=== PATIENT | female | born 1950 | race Caucasian/White ===

== ENCOUNTER 2016-07-30 10:56 | Inpatient (IN) | payer BC, MEDICARE ==
[~2016-07-30] VITALS: Ht 162.6 cm; Wt 106.1 kg
[2016-07-30 14:43] VITALS: BP 146/91
--- NOTE | 2016-07-30 15:09 | Physical Therapy Evaluation ---
PT Evaluation-General Medical Diagnosis Admission Date Jul 30, 2016 at 14:30 Medical Diagnosis: pneumonia Onset Date: Jul 23, 2016 Therapy Diagnosis Therapy Diagnosis: weakness; abn gait Height/Weight Height (Feet): 5 Height (Inches): 4.00 Weight (Pounds): 245 Weight (Ounces): 0.0 Precautions Precautions/Isolations: Standard Precautions Weight Bear Status NWB R UE Referral Physician: Anil Reason for Referral: Evaluation/Treatment Medical History Pertinent Medical History: GERD Additional Medical History morbid obesity, sarcoidosis with steroid dependence, chronic respiratory failure , recurrent pneumonia, depression, chronic back pain. Current History Recent hospital admit with humeral dislocation, clavicle fx; reports of SOA and recurrent pneumonia. Reviewed History: Yes Social History Home: Single Level Current Living Status: Spouse PT Steps Inside Home: 2 Prior/Core FIM Prior Level of Function Functional [place] Measure 0=Not Assessed/NA 4=Minimal Assistance 1=Total Assistance 5=Supervision or Setup 2=Maximal Assistance 6=Modified [place] 3=Moderate Assistance 7=Complete [place] Bed Mobility: 7 (typically sleeps in a recliner) Transfers (B,C,W/C) (FIM): 7 Gait: 7 drives; occas uses a cane in the community; works as a certified medical coder. PT Evaluation-Current Subjective Agrees to PT. Reports she is tired today as she has done more today than in the last few days. Pain Numeric Pain Scale: 0-No Pain Location: No Pain Reported Objective Patient Orientation: Person, Place, Time, Situation Problem Solving: Good Attachments: Oxygen ROM/Strength ROM Lower Extremities WFL Strenght Lower Extremities grossly 4-/5 throughout Integumentary/Posture Integumentary intact Bowel Incontinence: No Bladder Incontinence: No Posture normal and symmetrical; right UE in a sling Neuromuscular (Tone, Coordination, Reflexes) no noted functional deficits Sensory Vision: Functional Hearing: Functional Hand Dominance: Right Sensation Right Lower Extremit: Intact Sensation Left Lower Extremity: Intact Transfers Functional [place] Measure 0=Not Assessed/NA 4=Minimal Assistance 1=Total Assistance 5=Supervision or Setup 2=Maximal Assistance 6=Modified [place] 3=Moderate Assistance 7=Complete IndependenceIRFPAI Quality Coding Scale 6 Independent with activity with or without an assistive device 5 Patient requires set up or clean up by helper. Patient completes activity by themselves 4 Supervision or touching assist (CGA). [place] provide cues , steadying assist 3 The helper provides less than half the effort to complete the activity 2 The helper provides more than half the effort to complete the activity 1 Dependent. The helper does all the effort to complete an activity 7 Patient refused to complete or attempt activity 9 The patient did not perform the activity before the current illness or injury 88 Not attempted due to Medical conditions or safety concerns Transfers (B, C, W/C) (FIM): 4 Scootin Rollin Roll Left to Right (QC): 4 Supine to/from Sit: 4 (light assist with left leg) Sit to/from Stand: 4 (CGA for safety) Sit to Lying (QC): 4 Lying to Sitting/Side of Bed(Q: 4 Sit to Stand (QC): 4 Chair/Lqo-rc-Lvogx Xfer(QC): 4 Car Transfer (QC): 88 Gait Does the Patient Walk?: Yes Mode of Locomotion: Walk Anticipated Mode of Locomotion: Walk Gait (FIM): 2 Distance (FIM): 4=639-47 ft Walk 10 feet (QC): 4 Walk 50 ft with 2 Turns(QC): 4 (in room and gym area with turning. ) Walk 150 ft (QC): 88 (walked 125 ft ) Walking 10ft/uneven surface-QC: 4 (close CGA and unsteady) Gait Assistive Device: Cane Small Base Quad Comments/Gait Description slightly unsteady. Wheelchair Training Does the Pt Use a Wheelchair?: No Stairs Stairs (FIM): 1 #of Steps: 1 Level of Assist: 4 1 Step (curb) (QC): 4 4 Steps (QC): 88 Assistive Device: Cane 12 Steps (QC): 88 Balance Sitting Static: Normal Sitting Dynamic: Normal Standing Static: Fair Standing Dynamic: Fair Picking up an Object (QC): 88 (unsafe to attempt) Treatment Gait training with cane; safety training and education. Education on ARU expectations and discussion of pt goals. Worked on functional sit to from stand transfers. Assessment/Needs Pt presents with recent fall as well as decreased functional activity tolerance and need for assist with functional transfers and gait; she also demonstrates balance deficits. She will benefit from skilled Pt intervention to address this and promote indep mobility to allow her to return home as before. Eval of moderate complexity due to comorbidities, systems affected and changing characteristic as recent acute hospital stay. Rehab Potential: Good PT Short Term Goals Short Term Goals Time Frame: Aug 07, 2016 Transfers (B,C,W/C) (FIM): 5 Gait (FIM): 5 PT Satellite Tv Technician Installer Goals Satellite Tv Technician Installer Goals PT Retirement Goals Time Frame: Aug 17, 2016 Transfers (B,C,W/C) (FIM): 7 Sit to Lying (QC): 6 Lying-Sitting on Side/Bed(QC): 6 Sit to Stand (QC): 6 Roll Left to Right (QC): 6 Chair/Bdz-mc-Sowgx Xfer(QC): 6 Car Transfer (QC): 5 Does the Patient Walk: Yes Gait (FIM): 6 Gait distance (FIM): 3=150 ft Walk 10 feet (QC): 6 Walk 10ft-Uneven Surface(QC): 6 Walk 50ft with 2 Turns (QC): 6 Walk 150 ft (QC): 6 Gait Assistive Device: Cane Small Base Quad Does the Pt use WC or Scooter?: No Stairs (FIM): 5 # of Steps: 8 1 Step (curb) (QC): 5 4 Steps (QC): 6 12 Steps (QC): 88 Picking up an Object (QC): 4 All LTG;s are set to allow pt to be mod indep to indep to discharge home and care for herself. PT Plan Problem List Problem List: Activity Tolerance, Functional Strength, Safety, Balance, Gait, Transfer, Bed Mobility Treatment/Plan Treatment Plan: Continue Plan of Care Treatment Plan: Bed Mobility, Education, Functional Activity Klaudia, Functional Strength, Group Therapy, Gait, Safety, Therapeutic Exercise, Transfers Treatment Duration: Aug 17, 2016 # of days/week 5-6 Visits Per Week: 10-15 Minutes/Day (M-F): 60-90 Pt/Family Agrees w/Plan: Yes Safety Risks/Education Patient Education: Transfer Techniques, Safety Issues Teaching Recipient: Patient Teaching Methods: Demonstration, Discussion Response to Teaching: Reinforcement Needed Time/GCodes Time In: 1520 Time Out: 1600 Total Billed Treatment Time: 40 Total Billed Treatment visit EVM 15 FA 12 GT 13 EMANI ALCANTARA PT Jul 30, 2016 15:09
--- NOTE | 2016-07-30 15:25 | Occupational Therapy Eval ---
OT Evaluation-General/PLF Medical Diagnosis Admission Date Jul 30, 2016 at 14:30 Medical Diagnosis: pneumonia Onset Date: July 14, 2016 Therapy Diagnosis Therapy Diagnosis: dec self care, decr activity tolerance, decr funct mobility , weakness Height/Weight Height (Feet): 5 Height (Inches): 4.00 Weight (Pounds): 245 Weight (Ounces): 0.0 Precautions Precautions/Isolations: Standard Precautions Weight Bear Status WBS (Ord/Comment): Pt reported she can bend her R elbow, forearm and hand but can only dangle at her R shoulder. She said she is not to lift her arm but demonstrated that int/ ext rotation were acceptable Referral Physician: Anil Medical History Pertinent Medical History: COPD, GERD Additional Medical History sarcoidosis with cortisone dependancy, pneumonia, morbid obesity. depression, hx bronchitis. Pt reported hx of three compression fractures in her back. chronic back pain Current History Pr fell at home, dislocated R shoulder, fx R clavicle, may have rib fx. Pneumonia. Acute on chronic hypoxia and respiratory failure. Reviewed History: Yes Social History Home: Single Level Current Living Status: Children (son, 25 years old) Steps Inside Home: 2 ADL-Prior Level of Function ADL PLOF Comments Pt reported that she has been able to manage her basic self care prior to fall. She said, "I have been going downhill the past year". She managed cooking and her did laundry. She still drives (her doesn't). 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 DME/Equipment: Bath Chair, Grab Bars (in shower), Shower Occupation: natural fabricator Drive Self: Yes OT Current Status Subjective Pt seen in room, up at EOB, agreeable to OT. Reported pain 0/10 Appearance Alert, cooperative, appears good historian Mental Status/Objective Attachments: Oxygen Current Glasses/Contacts: Yes (reading) Hearing Aids: No Dentures/Partials: No Hand Dominance: Right Upper Extremity ROM L UE grossly WFL. R hand, wrist, forearm grossly WFL, elbow flex limited to about 90 degrees Upper Extremity Coordination Pt reported no problems with numbness or tingling in her hands but has some in her feet Upper Extremity Strength L UE grossly 4/5, R not tested due to shoulder limitations. Pt is functionally non-weight bearing in R UE for transfers ADL-Treatment ADL-Current Pt said that she normally used a quad cane for walking. Used SPC with tripod base until her personal quad cane arrives tomorrow. Required frequent recovery periods between activities and pt demonstrated pursed lip breathing Functional [place] Measure 0=Not Assessed/NA 4=Minimal Assistance 1=Total Assistance 5=Supervision or Setup 2=Maximal Assistance 6=Modified [place] 3=Moderate Assistance 7=Complete IndependenceIRFPAI Quality Coding Scale 6 Independent with activity with or without an assistive device 5 Patient requires set up or clean up by helper. Patient completes activity by themselves 4 Supervision or touching assist (CGA). [place] provide cues , steadying assist 3 The helper provides less than half the effort to complete the activity 2 The helper provides more than half the effort to complete the activity 1 Dependent. The helper does all the effort to complete an activity 7 Patient refused to complete or attempt activity 9 The patient did not perform the activity before the current illness or injury 88 Not attempted due to Medical conditions or safety concerns Grooming (FIM): 5 (SBA at sink to wash hands) Toileting (FIM): 3 (Pt needed a little help getting pants pulled up on her R hip but not L hip. Sit to stand with pushing up with L UE on arms of BSC. (Room has grab bars on R side). Able to wipe front and back) Toileting Hygiene (QC): 3 Toilet/Commode Transfer (FIM): 4 (BSC over toilet, required for arm rest L side ) Toilet Transfer (QC): 4 (CGA) Other Treatments Pt left up in recliner, all needs met. Pt did request to have about 1/2 hour time after eating to help manage her GERD. Nursing notified. Education OT Patient Education: Modified ADL techniques, Purpose of tx/functional activities, Reviewed precautions, Rehab process, Safety issues, Transfer techniques, Use of adapted equipment Teaching Recipient: Patient Teaching Methods: Demonstration, Discussion Response to Teaching: Verbalize Understanding, Return Demonstration, Reinforcement Needed OT Short Term Goals Short Term Goals Time Frame: Aug 10, 2016 Lower Body Dressing(FIM): 5 Toileting(FIM): 5 Toilet/Commode Transfer(FIM): 5 Additional Short Term Goals: 1-Demonstrate ADL Tasks, 2-Verbalize Understanding , 3-ImproveStrength/Klaudia 1=Demonstrate adherence to instructed precautions during ADL tasks. 2=Patient will verbalize/demonstrate understanding of assistive devices/ modifications for ADL. 3=Patient will improve strength/tolerance for activity to enable patient to perform ADL's. OT Intermediate Goals Intermediate Goals Time Frame: Aug 17, 2016 Eating (FIM): 7 Eating (QC): 6 Groomin Oral Hygiene (QC): 6 Bathing(FIM): 6 Shower/Bathe Self (QC): 6 Upper Body Dressing(FIM): 6 Upper Body Dressing (QC): 6 Lower Body Dressing(FIM): 6 Lower Body Dressing (QC): 6 On/Off Footwear (QC): 6 Toileting(FIM): 6 Toileting Hygiene (QC): 6 Toilet/Commode Transfer(FIM): 6 Toilet/Commode Transfer (QC): 6 Shower Transfer(FIM): 6 Additional Goals: 1-Demonstrate ADL Tasks, 2-Verbalize Understanding, 3- ImproveStrength/Klaudia 1=Demonstrate adherence to instructed precautions during ADL tasks. 2=Patient will verbalize/demonstrate understanding of assistive devices/ modifications for ADL. 3=Patient will improve strength/tolerance for activity to enable patient to perform ADL's. OT Education/Plan Problem List/Assessment Assessment: Decreased Activ Tolerance, Decreased UE Strength, Dependent Transfers, Impaired Funct Balance, Impaired Self-Care Skills, Restricted Funct UE ROM Pt would benefit from skilled OT to increase her independence in basic self care to allow her to return home safely to live with her and son. Discharge Recommendations Plan/Recommendations: Continue POC Treatment Plan/Plan of Care Treatment,Training & Education: Yes Patient would benefit from OT for education, treatment and training to promote independence in ADL's, mobility, safety and/or upper extremity function for ADL' s. Plan of Care: ADL Retraining, Functional Mobility, Group Exercise/Act as Ind ( education, exercise, activity tolerance, funct activities, socialization), UE Funct Exercise/Act, UE Neuromus Re-Ed/Coord Treatment Duration: Aug 17, 2016 # of days/week 5-6 Visits Per Week: 10-12 Minutes/Day (M-F): 75-90 Minutes/Day (Sat/Porter): PRN Agreement: Yes Rehab Potential: Good Time/GCodes Start Time: 14:25 Stop Time: 15:05 Total Time Billed (hr/min): 40 Billed Treatment Time visit, 25 minutes evaluation moderate intensity, 15 minutes ADL PRANAY GAVIRIA OT Jul 30, 2016 15:25
--- NOTE | 2016-07-30 15:28 | ST Cognitive Linguistic Eval ---
Speech Evaluation-General Medical Diagnosis Pneumonia, Debility Onset Date: Jul 23, 2016 Therapy Diagnosis Therapy Diagnosis: Cognitive Linguistic Skills WNL Precautions Precautions/Isolations: Standard Precautions Referral Referring Physician: Dr. Kenroy Ma Reason for Referral: Evaluation/Treatment Cognitive Evaluation Medical History Pertinent Medical History: COPD, GERD, Hypothroidism Sarcoidosis Reviewed History: Yes Social History Home: Single Level Current Living Status: Significant Other Speech PLF-Current Status Prior Level of Function The patient denied any recent challenges with cognition, speech, language, or swallowing. Subjective The patient was recently admitted to [facility] following a fall resulting in compression fractures and overall debility. The patient greeted the clinician appropriately and was agreeable to the cognitive evaluation on this date. Language Eval: Auditory Comprehends Simple Yes/No Ques: Functional Indent/Objects [place]: Functional Ident/Pics in [place]: Functional Follows 1-Step Commands: Functional Follows Complex Directions: Functional Follows General Conversations: Functional Language Eval: Verbal Language Completes Spontaneous Greeting: Functional Produces Auto, Serial Info: Functional Imitates Simple Words/Phrases: Functional Word Finding: Functional Requests Basic Needs: Functional States Basic Personal Info: Functional Expresses Complex Ideas: Functional Cognitive Patient Orientation The patient is oriented to rationale for rehabilitation, self, month, date, day of week, and year. Objective Cognitive Domain Attention: WNL Memory: WNL Problem Solving: Functional Executive Functions: WNL Objective Impression The patient demonstrated cognitive linguistic skills grossly within normal limits and appropriate for completion of ADL's. Communication/Social Cognition Comprehension: 6 Expression: 6 Social Interaction: 6 Problem Solvin Memory: 5 Speech Patient Assess Expression of Ideas/Wants: Expression (4) Understanding [place] Content: Understands (4) Brief Interview-Mental Status: Yes Repetition of Three Words: Three (3) Temporal Orientation: Year: Correct (3) Temporal Orientation: Month: Accurate within 5 days(2) Temporal Orientation: Day: Correct (1) Recall : Wear to say "Sock": Yes, no cue required (2) Recall : Color: Yes, no cue required (2) Recall : Bed: Yes, no cue required (2) Speech-Plan Treatment Plan Speech Therapy Treatment Plan: Discontinue ST Evaluation, only. Rehab Potential: Guarded Safety Risks/Education Teaching Recipient: Patient Teaching Methods: Discussion Response to Teaching: Verbalize Understanding Education Topics Provided: Plan of Care, Results, Recommendations Time Speech Therapy Time In: 15:05 Speech Therapy Time Out: 15:20 Total Billed Time: 15 Billed Treatment Time 1, DON CHRISTIE Jul 30, 2016 15:28
[2016-07-30] MEDS ORDERED: L.AC1CAP6 PO (15:31)
[2016-07-30] MEDS ORDERED: PRAV80TA2 PO (15:31)
[2016-07-30] MEDS ORDERED: PANT40TA3 PO (15:31)
[2016-07-30] MEDS ORDERED: GUAI120016 PO (15:31)
[2016-07-30] MEDS ORDERED: IPRA3AMP IH (15:31)
[2016-07-30] MEDS ORDERED: MULT1TAB69 PO (15:31)
[2016-07-30] MEDS ORDERED: PRD10T PO (15:31)
[2016-07-30] MEDS ORDERED: CYCL10TA9 PO (15:31)
[2016-07-30] MEDS ORDERED: HYDR-3812 PO (15:31)
[2016-07-30] MEDS ORDERED: FLUO20CA25 PO (15:31)
[2016-07-30] MEDS ORDERED: DIPH50CA PO (15:31)
[2016-07-30] MEDS ORDERED: LEVO137T2 PO (15:31)
[2016-07-30] MEDS ORDERED: ALPR0.5T7 PO (15:31)
[2016-07-30] MEDS ORDERED: BACL10TA PO (15:31)
[2016-07-30] MEDS ORDERED: SUCR1TAB PO (15:31)
[2016-07-30] MEDS ORDERED: RT-ALBUTEROL/IPRATROPIUM 3 ML (DUONEB) VIAL INH PRN ×2 (16:00→17:15)
[2016-07-30] MEDS ORDERED: CYCLOBENZAPRINE 10 MG (FLEXERIL) TAB PO PRN (16:00)
[2016-07-30] MEDS: SUCRALFATE 1 GM (CARAFATE) TAB PO SCH ×2 (16:32→21:13)
[2016-07-30] MEDS: RT-ALBUTEROL/IPRATROPIUM 3 ML (DUONEB) VIAL INH SCH (19:13)
[2016-07-30] MEDS: LACTOBACILLUS Acidoph/Bulgar (LACTINEX/FLORANEX) TAB PO SCH (21:13)
[2016-07-30] MEDS: PANTOPRAZOLE 40 MG (PROTONIX) TAB PO SCH (21:13)
[2016-07-30] MEDS: ALPRAZolam 0.5 MG (XANAX) TAB PO SCH (21:13)
[2016-07-30] MEDS: BACLOFEN 10 MG (LIORESAL) TAB PO SCH (21:13)
[2016-07-30] MEDS: FLUoxetine HCL 20 MG (PROzac) CAP PO SCH (21:13)
[2016-07-30] MEDS: guaiFENesin (MUCINEX) 600 MG TAB PO SCH (21:13)
[2016-07-30] MEDS: diphenhydrAMINE 25 MG TAB (BENADRYL) PO SCH (21:14)
[2016-07-31 04:45] VITALS: BP 138/84
--- NOTE | 2016-07-31 05:16 | HISTORY AND PHYSICAL ---
DATE OF SERVICE: 07/30/2016 CHIEF COMPLAINT: Difficulty with walking. HISTORY OF PRESENT ILLNESS: The patient is a 65-year-old female who presented to [facility] with worsening dyspnea and hypoxia. She has history of COPD, morbid obesity, hypothyroidism, sarcoidosis diagnosed in 2010, depended on chronic steroid therapy, who recently had a fall with resultant right clavicle fracture, right shoulder dislocation and right rib fracture, with small spontaneous right pneumothorax that was being managed conservatively. She had reduction of the right shoulder dislocation and a sling placed for the right clavicle fracture. This was managed by Dr. Soliz, orthopedics. Upon admission to [place], she had a chest x-ray that showed right pleural effusion and a CT angiogram of the chest that showed right pleural effusion and probable pneumonia. She was started on empiric antibiotic therapy for pneumonia. Ultrasound of the chest showed significant pleural effusion. She underwent thoracentesis that showed old blood with exudative qualities. The cytology was negative. Cultures were negative. Antibiotics were eventually stopped. She continued to have significant debility with this from the recent fall as well as the pneumonia, and this was complicated by morbid obesity and COPD. Prior Level of Function: She had been modified independent prior to this and living at home with her spouse who currently works at a local plant in their hometown of [place], [place]. She was referred to inpatient rehabilitation unit due to a decline in her functional independence with approval from her commercial insurance. 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 PAST MEDICAL HISTORY: Sarcoidosis, O2 dependent at night, followed by service center specialist in [place]. COPD, morbid obesity, hypothyroidism, recent fall as per above. PAST SURGICAL HISTORY: No prior knee, hip, spinal surgery. ALLERGIES: PENICILLIN AND SULFA, DANAZOL, LEVAQUIN, MORPHINE. FAMILY HISTORY: Noncontributory. SOCIAL HISTORY: Essentially as per above. Current LEVEL OF FUNCTION: She was modified independent for ADLs and mobile with a cane prior to this. Currently, she is min assist for gait, using a small-base quad cane. She is right-hand dominant. Her right arm is in sling. She has decreased endurance, fatigues easily. She is O2 dependent at this point, continuous. She is max assist for upper body dressing with right upper limb in a sling. She is moderate assistance for bathing, min assist for toileting and min assist for toilet transfers.She is reported to be continent of bowel and bladder REVIEW OF SYSTEMS: A 10-point review of systems significant for fall, shortness of breath. She does report occasional wheezing, none at this time. She reports numbness and some tingling in her feet at times, which she relates to peripheral vascular disease. MEDICATIONS: Zocor 40 mg p.o. q.h.s., prednisone 10 mg p.o. daily, multivitamins with minerals 1 tablet p.o. daily, Synthroid 137 mcg p.o. daily, Mucinex 1200 mg p.o. b.i.d., Protonix 40 mg p.o. b.i.d., Lactinex 1 tablet p.o. q.h.s., Prozac 20 mg p.o. q.h.s., baclofen 10 mg p.o. q.h.s., Xanax 0.5 mg p.o. b.i.d., DuoNeb treatments q.i.d. and q. 2 hours p.r.n. shortness of breath. Carafate 1 g p.o. q.i.d. before meals and h.s., Flexeril 10 mg p.o. t.i.d. p.r.n. muscle spasm, hydrocodone/APAP 1 tablet p.o. q. 4 hours p.r.n. moderate pain. PHYSICAL EXAMINATION: GENERAL: Significant for pleasant, obese female, appearing stated age, sitting up in chair, watching TV, with right arm in sling, with O2 by nasal cannula in place. She reports mild pain at this time. VITAL SIGNS: Temperature 99.3, pulse 102, respirations 18, blood pressure 146/91, O2 sat 94% on 2 liters of O2 continuous. HEENT: Vision, speech, hearing grossly intact. No oral lesion is noted. NECK: Supple without mass. HEART: Regular rhythm. LUNGS: Clear anteriorly. ABDOMEN: Obese, soft, nontender, benign. EXTREMITIES: Trace edema at ankles, nonpitting. No calf tenderness. MUSCULOSKELETAL: The patient has functional passive range of motion in all 4 extremities, other than the right shoulder which is not tested due to being in a sling. NEUROLOGICAL: Cognition is grossly intact. Sensation intact in both upper limbs. Left upper limb, grossly 4/5 strength, right not tested due to shoulder limitations, but she was able to move her right elbow, wrist and hand and fingers. She is nonweightbearing, right upper limb for transfers. Lower extremities strength grossly 4-/5. Sensation is grossly intact to touch. She does report some tingling, numbness in her feet. IMPRESSION: 1. General debilitation secondary to acute on chronic hypoxic respiratory failure due to pneumonia, treated. 2. Chronic obstructive pulmonary disease, currently O2 dependent. 3. Hypothyroidism, on replacement. 4. Fall with right clavicular fracture, dislocation with close reduction and managed with sling and re-fractures; managed conservatively, Dr. Soliz, orthopedics. 5. Sarcoidosis, followed by service center specialist, on chronic steroids. PLAN: The patient had comprehensive program with inpatient rehabilitation with goal of maximizing level of functional independence prior to discharge home with spouse and her son. The patient will have PT, OT 90 minutes per day, each discipline, 5 days a week for gait, strengthening and conditioning, ADLs, any patient family caregiver training necessary, adaptive equipment training necessary. Speech therapy has done cognitive assessment, cleared her and signed off. Rehabilitation nursing to assist with bowel, bladder skin care, medication administration, pain management. director of food and nutrition services will assist with discharge planning and community reentry. Respiratory therapy to assist with respiratory treatment administration, O2 administration, monitoring O2 sat. barnworker groom to assist with discharge planning, community reentry. Consult Dr. Hooks to assist with medical management for this out of town patient. Routine admission labs. Therapy with cardiac and fall precautions. ESTIMATED LENGTH OF STAY: 2 weeks. PROGNOSIS: Rehab prognosis appears good for a goal of enhancing level of functional dependence prior to discharge home with spouse and son, hopefully modified independent to supervision for much of her ADLs and mobility skills. Functional goals maybe limited due to her right-hand dominant status and being in a right arm sling. She indicates that she is to see Dr. Soliz in followup in approximately 2 weeks' time. DIET: Heart healthy. CODE STATUS: Full code. Job ID: [id number] DocumentID: [id number] Dictated Date: 07/30/2016 18:31:36 Seo Manager Date: 07/31/2016 00:50:43 Dictated By: PHYLLIS KULKARNI MD [facility]
[2016-07-31] MEDS ORDERED: NON-FORMULARY MEDICATION 1 EA EA PO SCH ×2 (06:00→09:00)
[2016-07-31] MEDS: LEVOTHYROXINE 25 MCG (LEVOTHROID) TAB PO SCH (06:17)
[2016-07-31] MEDS: PANTOPRAZOLE 40 MG (PROTONIX) TAB PO SCH ×2 (06:17→20:57)
[2016-07-31] MEDS: LEVOTHYROXINE 112 MCG (LEVOTHROID) TAB PO SCH (06:17)
[2016-07-31] MEDS: MULTIVIT W/MINERALS TAB (THERAGRAN M) PO SCH (06:18)
[2016-07-31] MEDS: SUCRALFATE 1 GM (CARAFATE) TAB PO SCH ×4 (06:19→20:57)
[2016-07-31] MEDS: RT-ALBUTEROL/IPRATROPIUM 3 ML (DUONEB) VIAL INH SCH ×4 (07:11→19:26)
[2016-07-31] MEDS: predniSONE 10 MG TAB PO SCH (07:40)
[2016-07-31] MEDS: HYDROcodone/APAP 5 MG/325 MG (LORTAB) TAB PO PRN ×2 (07:41→14:43)
[2016-07-31] MEDS: guaiFENesin (MUCINEX) 600 MG TAB PO SCH ×2 (07:41→20:58)
[2016-07-31] MEDS: ALPRAZolam 0.5 MG (XANAX) TAB PO SCH ×2 (07:41→20:57)
--- NOTE | 2016-07-31 07:52 | PM&R Post Admission Assessment ---
Post Admission Physician Asses The preadmission screen agrees with the post admission assessment that the patient is a good candidate for inpatient rehabilitation. The patient will have a comprehensive program of inpatient rehabilitation with a goal of maximizing level of functional independence prior to discharge home with family and HHC. The patient will have PT/OT ninety minutes per day, each discipline, five days a week for gait. strengthening, conditioning, balance, ADLs, any patient/family/caregiver training as necessary. Speech therapy to do cognitive assessment and treat as indicated. Rehabilitation nursing to assist with bowel, bladder, skin, wound care, medication administration, pain management. Aed Trainer to assist with discharge planning, community reentry. SCD's for DVT prophylaxis.Resp therapy to assist with Resp treatments and and o2 administration. F/U labs and CXR She appears to be well motivated to participate in three hours of therapy a day. She should be able to tolerate three hours of therapy a day from a medical standpoint. She should benefit from the three hours of therapy a day. She has a reasonable discharge plan, reasonable discharge rehabilitation goals and a supportive family. She has various comorbidities that need to be closely monitored with medications and treatments adjusted on a daily basis as needed. These include: COPD with o2 dependence Sarcoidosis with chronic steroid usage Barriers to discharge for this patient who had been independent prior to this are for her to be modified independent to supervision for ADLs and mobility skills prior to discharge home with family and HHC, so as to lessen the burden of the caregivers. Risks for this patient include: 1. Fall 2. Fracture 3. DVT 4. Pulmonary embolism 5. Worsening resp insufficiency 6. Skin breakdown 7. Contractures 8. Poorly controlled pain 9. Urinary retention 10. UTI 11. Recurrent pneumonia 12. Aspiration Estimated Length of Stay: 12 days Prognosis: Rehab prognosis appears good for goal of discharge home with family and HHC modified independent to supervision for ADLs and mobility skills. PHYLLIS KULKARNI MD Jul 31, 2016 07:52
--- NOTE | 2016-07-31 07:58 | PM & R (SOAP) Progress Note ---
Subjective Time Seen by Provider: 07:30 Subjective/Events-last exam Patient was seen in her room this AM with RN Had few wheezes cleared with resp treatments Discussed case with DR curiel and RN SCDS and Labs and CXR ordered Adjusting well to unit.She is max assist for Upper body dressing due to sling RT upper limb Review of Systems Pulmonary: Dyspnea Neurological: Numbness, Weakness Objective Exam Last Set of Vital Signs Vital Signs Date Time Temp Pulse Resp B/P (MAP) Pulse Ox O2 Delivery O2 Flow Rate FiO2 07/31/16 07:13 92 Nasal Cannula 2.00 07/31/16 04:45 97.0 86 18 138/84 Capillary Refill : Less Than 3 Seconds I&O Bad tableGeneral: Alert, Oriented X3, Cooperative, No Acute Distress HEENT: Atraumatic, PERRLA, EOMI, Mucous Memb Moist/[place], Other (02 by N/C inplace) Neck: Supple, No JVD Lungs: Other (few crackles at bases) Heart: Regular Rate Abdomen: Normal Bowel Sounds, Soft, No Tenderness, Other (obese) Extremities: No Edema Neuro: Other (RT arm in sling .generalized weakness) Assessment/Plan Assessment General debil secondary to acute on chronic resp insufficiency Pneumonia treated Copd 02 dependent Sarcoidosis on chronic steroid usage Obesity Plan Continue PT/OT Check labs and CXR SCDS for dvy prophylaxis Team Conference in PHYLLIS BERMEO MD Jul 31, 2016 07:58
--- NOTE | 2016-07-31 08:15 | Diagnostic Imaging Report ---
INDICATION: Dyspnea in patient with sarcoidosis. PA and lateral views of the chest are obtained. No previous studies available at this time for comparison. There is suboptimal inspiration. There is blunting of right costophrenic sulcus consistent with moderate amount of pleural fluid or thickening. There is mixed interstitial and alveolar density throughout the lungs which may be chronic. There does appear to be dislocation of the right shoulder. No pneumothorax is seen. IMPRESSION: Mixed interstitial and alveolar densities in both lungs of unknown chronicity. Short-term followup study would be of use. There is blunting of right costophrenic sulcus, which may be due to moderate amount of pleural fluid or thickening. Dictated by: Dictated on workstation # [id number]
--- NOTE | 2016-07-31 08:28 | Consultation ---
History of Present Illness History of Present Illness Patient Consulted On(jud/time) 07/31/16 08:23 Date of Admission History of Present Illness debility.. Patient states she is short of breathe and can't walk around. Patient states on July 14, fell and dislocated right shoulder and fractured right clavicle and had a pneumothorax . On June 22 patient short of breath and had thoracentesis done with 500 nosophobia blood removed back in hospital. Allergies penicillin sulfa?. 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 Patient has a history of COPD, hypothyroid, morbid obesity, right shoulder dislocation sarcoidosis Allergies and Home Medications Allergies Coded Allergies: Penicillins (Verified Allergy, Intermediate, HIVES, 07/30/16) danazol (Verified Allergy, Intermediate, HIVES, 07/30/16) levofloxacin (Verified Allergy, Intermediate, HIVES, 07/30/16) morphine (Verified Allergy, Mild, 07/30/16) caused redness to hand. Pt stated she did take it later and it was fine and had no reaction Sulfa (Sulfonamide Antibiotics) (Verified Allergy, Unknown, 07/30/16) Home Medications Alprazolam 0.5 Mg Tablet, 0.5 MG PO BID, (Reported) Baclofen 10 Mg Tablet, 10 MG PO HS, (Reported) Cyclobenzaprine HCl 10 Mg Tablet, 10 MG PO TID PRN for MUSCLE SPASMS, (Reported) Diphenhydramine HCl 50 Mg Capsule, 50 MG PO HS, (Reported) Fluoxetine HCl 20 Mg Capsule, 20 MG PO HS, (Reported) Guaifenesin 1,200 Mg Tab.er.12h, 1,200 MG PO BID, (Reported) Hydrocodone/Acetaminophen 1 Each Tablet, 1 TAB PO Q4H PRN for PAIN-MODERATE, ( Reported) Ipratropium/Albuterol Sulfate 3 Ml Ampul.neb, 3 ML IH Q4H PRN for SHORTNESS OF BREATH, (Reported) L.acidoph & Paracasei,B.lactis 1 Each Capsule, 1 CAP PO HS, (Reported) Levothyroxine Sodium 137 Mcg Tablet, 137 MCG PO 0600, (Reported) Multivitamin 1 Each Tablet, 1 TAB PO DAILY, (Reported) Pantoprazole Sodium 40 Mg Tablet.dr, 40 MG PO BID, (Reported) Pravastatin Sodium 80 Mg Tablet, 80 MG PO DAILY, (Reported) Prednisone 10 Mg Tab, 10 MG PO DAILY, (Reported) Sucralfate 1 Gm Tablet, 1 GM PO QIDPCHS, (Reported) Past Lssvpol-Haregw-Exhdjh Hx Patient Social History Alcohol Use: Denies Use Recreational Drug Use: No Smoking Status: Never a Smoker Recent Foreign Travel: No Contact w/Someone Who Travel: No Recent Infectious Disease Expo: No Recent Hopitalizations: Yes Physical Abuse Screen: No Sexual Abuse: No Immunizations Up To Date Date of Pneumonia Vaccine: Jul 31, 2011 Seasonal Allergies Seasonal Allergies: Yes Surgeries HX Surgeries: Yes Respiratory Respiratory Disorders: Pneumonia, Chronic Bronchitis, Sleep Apnea, COPD Cardiovascular Hx Cardiac Disorders: No Gastrointestinal Gastrointestinal Disorders: Gastroesophageal Reflux, Hiatal Hernia Musculoskeletal Musculoskeletal Disorders: Fractures Psychosocial Behavioral Health Disorders: Anxiety, Depression Review of Systems-General Time Seen by Provider: 08:30 Constitutional: malaise, weakness EENTM: no symptoms reported Respiratory: dyspnea on exertion, other (sarcoidosis on prednisone) Cardiovascular: no symptoms reported Gastrointestinal: no symptoms reported Genitourinary: no symptoms reported Physical Exam-General Problems Physical Exam Vital Signs Vital Sign - Last 12Hours 07/30/16 14:43 Temp 99.3 Pulse 102 Resp 18 B/P (MAP) 146/91 Pulse Ox 93 O2 Delivery Nasal Cannula O2 Flow Rate 2.00 Capillary Refill : Less Than 3 Seconds General Appearance: WD/WN, no apparent distress Eyes: Bilateral Eye Normal Inspection HEENT: normal ENT inspection Neck: full range of motion, supple Respiratory: no respiratory distress, no accessory muscle use, wheezing Cardiovascular: regular rate, rhythm, no murmur Gastrointestinal: non tender, soft Assessment/Plan Assessment/Plan Admission Diagnosis/Plan debility. COPD. Morbid obesity. Hypothyroid. Right clavicle fracture. Right shoulder dislocation. Pleurocentesis. Pneumothorax Clinical Quality Measures DVT/VTE Risk/Contraindication: Risk Factor Score Per Nursin RFS Level Per Nursing on Admit: 4+=Very High FRED GRAVES DO Jul 31, 2016 08:28
--- NOTE | 2016-07-31 10:25 | Occupational Ther Daily Note ---
OT Current Status-Daily Note Subjective Pt seen in room, up in chair, agreeable to OT. No pain mentioned. Appearance Alert, cooperative Mental Status/Objective Functional [place] Measure 0=Not Assessed/NA 4=Minimal Assistance 1=Total Assistance 5=Supervision or Setup 2=Maximal Assistance 6=Modified [place] 3=Moderate Assistance 7=Complete [place] Attachments: Oxygen ADL-Treatment Pt with O2 at 2L/min throughout ADLs. Used SPC with tripod bottom for walking SBA-CGA. Pt left up in recliner, all needs met. Pt would benefit from electric lift chair because lever to manage food rest of recliner is on the right side and she cannot operate it with her R UE. Sling put back on after ADLs Functional [place] Measure 0=Not Assessed/NA 4=Minimal Assistance 1=Total Assistance 5=Supervision or Setup 2=Maximal Assistance 6=Modified [place] 3=Moderate Assistance 7=Complete IndependenceIRFPAI Quality Coding Scale 6 Independent with activity with or without an assistive device 5 Patient requires set up or clean up by helper. Patient completes activity by themselves 4 Supervision or touching assist (CGA). [place] provide cues , steadying assist 3 The helper provides less than half the effort to complete the activity 2 The helper provides more than half the effort to complete the activity 1 Dependent. The helper does all the effort to complete an activity 7 Patient refused to complete or attempt activity 9 The patient did not perform the activity before the current illness or injury 88 Not attempted due to Medical conditions or safety concerns Eating (FIM): 6 (Pt reported that she has been able to open packages, cut food and feed herself without assistance. Extra time needed due to decreased use R UE. No dentures) Eating (QC): 6 Grooming (FIM): 5 (Pt needed SBA to stand at the sink to brush her teeth, supporting herself with hand on counter. Brushed hair with setup while seated. Pt washed face and hands in shower with setup. ) Oral Hygiene (QC): 4 (SBA) Bathing (FIM): 4 (Pt washed and dried all parts except back but needed CGA when standing to wash you area. Able to lightly balance with R hand on grab bar while washing with L hand. Shower bench, grab bar, hand held shower.) Shower/Bathe Self (QC): 3 Upper Body (FIM): 5 (Able to dress and undress upper body with setup. Pt recalls to dress affected arm first and to dangle R arm but don't lift it up. Does not wear a bra because it is uncomfortable under sling) Upper Body Dressing (QC): 5 Lower Body Dressing (FIM): 4 (Able to get pants off and on over feet, stood CGA to SBA to pull pants up and needed just a little help pulling pants up over R hip in back. May be easier with next larger size Depends or her own underwear. ) Lower Body Dressing (QC): 3 On/Off Footwear (QC): 5 (On and off slip on shoes. Does not like to wear socks) Toileting (FIM): 4 (Able to get pants down and up with just a little help getting them up over R hip in back. managed hygiene. BSc over toilet) Toileting Hygiene (QC): 3 Toilet/Commode Transfer (FIM): 5 (SBA getting off and on BSC over toilet) Toilet Transfer (QC): 5 Shower Transfer(FIM): 4 (Needed just a little help getting off shower bench ( it is low for her). Grab bar, shower bench) Education OT Patient Education: Modified ADL techniques, Purpose of tx/functional activities, Safety issues, Transfer techniques Teaching Recipient: Patient Teaching Methods: Demonstration, Discussion Response to Teaching: Verbalize Understanding, Return Demonstration, Reinforcement Needed OT Short Term Goals Short Term Goals Time Frame: Aug 10, 2016 Lower Body Dressing(FIM): 5 Toileting(FIM): 5 Transfers (B,C,W/C) (FIM): 5 Toilet/Commode Transfer(FIM): 5 Additional Short Term Goals: 1-Demonstrate ADL Tasks, 2-Verbalize Understanding , 3-ImproveStrength/Klaudia 1=Demonstrate adherence to instructed precautions during ADL tasks. 2=Patient will verbalize/demonstrate understanding of assistive devices/ modifications for ADL. 3=Patient will improve strength/tolerance for activity to enable patient to perform ADL's. OT Elevated [place] Goals Assisted Goals Time Frame: Aug 17, 2016 Eating (FIM): 7 Eating (QC): 6 Groomin Oral Hygiene (QC): 6 Bathing(FIM): 6 Shower/Bathe Self (QC): 6 Upper Body Dressing(FIM): 6 Upper Body Dressing (QC): 6 Lower Body Dressing(FIM): 6 Lower Body Dressing (QC): 6 On/Off Footwear (QC): 6 Toileting(FIM): 6 Toileting Hygiene (QC): 6 Toilet/Commode Transfer(FIM): 6 Toilet/Commode Transfer (QC): 6 Shower Transfer(FIM): 6 Additional Goals: 1-Demonstrate ADL Tasks, 2-Verbalize Understanding, 3- ImproveStrength/Klaudia 1=Demonstrate adherence to instructed precautions during ADL tasks. 2=Patient will verbalize/demonstrate understanding of assistive devices/ modifications for ADL. 3=Patient will improve strength/tolerance for activity to enable patient to perform ADL's. OT Education/Plan Problem List/Assessment Pt would benefit from skilled OT to increase her independence in basic self care to allow her to return home safely to live with her and son. Discharge Recommendations Plan/Recommendations: Continue POC Treatment Plan/Plan of Care Patient would benefit from OT for education, treatment and training to promote independence in ADL's, mobility, safety and/or upper extremity function for ADL' s. Plan of Care: ADL Retraining, Functional Mobility, Group Exercise/Act as Ind ( education, exercise, activity tolerance, funct activities, socialization), UE Funct Exercise/Act, UE Neuromus Re-Ed/Coord Treatment Duration: Aug 17, 2016 Visits Per Week: 10-12 Minutes/Day (M-F): 75-90 Minutes/Day (Sat/P[place]): PRN Agreement: Yes Rehab Potential: Good Time/GCodes Start Time: 08:30 Stop Time: 09:30 Total Time Billed (hr/min): 60 Billed Treatment Time visit, 60 minutes ADL PRANAY GAVIRIA OT Jul 31, 2016 10:25
--- NOTE | 2016-07-31 10:49 | Physical Therapy Daily Note ---
PT Daily Note-Current Subjective Patient in recliner pre tx, agrees to PT, no complaints of pain. Appearance Patient in recliner with feet elevated post tx, ,has nurse call, phone, tray, all needs met. Mental Status Patient Orientation: Normal For Age Attachments: Oxygen sling Transfers Functional [place] Measure 0=Not Assessed/NA 4=Minimal Assistance 1=Total Assistance 5=Supervision or Setup 2=Maximal Assistance 6=Modified [place] 3=Moderate Assistance 7=Complete IndependenceIRFPAI Quality Coding Scale 6 Independent with activity with or without an assistive device 5 Patient requires set up or clean up by helper. Patient completes activity by themselves 4 Supervision or touching assist (CGA). [place] provide cues , steadying assist 3 The helper provides less than half the effort to complete the activity 2 The helper provides more than half the effort to complete the activity 1 Dependent. The helper does all the effort to complete an activity 7 Patient refused to complete or attempt activity 9 The patient did not perform the activity before the current illness or injury 88 Not attempted due to Medical conditions or safety concerns Transfers (B, C, W/C) (FIM): 5 Sit to/from Stand: 5 Gait Training Gait (FIM): 2 Distance: 100'x2 Gait Level of Assist: 4 Gait Persons Needed: 1 Gait Assistive Device: Cane Single Point CGA, no LOB but did need to stop a couple of times to steady herself Exercises Standing: Heel/toe raises, Mini squats Standing Reps: 15 (exercises performed to improve LE strengh and endurance) sit to stand 3 sets of 5, LAQ alternating each side with 2# ankle weights for 5 min NuStep Minutes: 15 NuStep Workload: 5 Treatments transfers, ambulation, functional strengthening Assessment Current Status: Fair Progress improving endurance, occasionally patient's O2 gets below 90%, needs frequent rest breaks due to fatigue and to catch her breath PT Short Term Goals Short Term Goals Time Frame: Aug 07, 2016 Transfers (B,C,W/C) (FIM): 5 Gait (FIM): 5 PT Driver License Agent Goals Driver License Agent Goals PT Mcc Goals Time Frame: Aug 17, 2016 Transfers (B,C,W/C) (FIM): 7 Sit to Lying (QC): 6 Lying-Sitting on Side/Bed(QC): 6 Sit to Stand (QC): 6 Rollin Roll Left to Right (QC): 6 Chair/Okk-pc-Tzeqs Xfer(QC): 6 Car Transfer (QC): 5 Does the Patient Walk: Yes Gait (FIM): 6 Gait distance (FIM): 3=150 ft Walk 10 feet (QC): 6 Walk 10ft-Uneven Surface(QC): 6 Walk 50ft with 2 Turns (QC): 6 Walk 150 ft (QC): 6 Gait Assistive Device: Cane Small Base Quad Does the Pt use WC or Scooter?: No Stairs (FIM): 5 # of Steps: 8 1 Step (curb) (QC): 5 4 Steps (QC): 6 12 Steps (QC): 88 Picking up an Object (QC): 4 PT Plan Problem List Problem List: Activity Tolerance, Functional Strength, Safety, Balance, Gait, Transfer, Bed Mobility Treatment/Plan Treatment Plan: Continue Plan of Care Treatment Plan: Bed Mobility, Education, Functional Activity Klaudia, Functional Strength, Group Therapy, Gait, Safety, Therapeutic Exercise, Transfers Treatment Duration: Aug 17, 2016 Visits Per Week: 10-15 Minutes/Day (M-F): 60-90 Safety Risks/Education Patient Education: Gait Training, Transfer Techniques, Correct Positioning, Safety Issues Teaching Recipient: Patient Teaching Methods: Demonstration, Discussion Response to Teaching: Reinforcement Needed Time/GCodes Time In: 945 Time Out: 1045 Total Billed Treatment Time: 60 Total Billed Treatment 1 visit GT 15' EX 45' JACQUELINE ALVARADO PT Jul 31, 2016 10:49
--- NOTE | 2016-07-31 14:00 | Physical Therapy Daily Note ---
PT Daily Note-Current Subjective Patient in chair pre tx, agrees to PT, no complaints of pain except when she coughs. Appearance Patient in recliner post tx with nurse call, phone, tray, all needs met. Mental Status Patient Orientation: Normal For Age Attachments: Oxygen Transfers Functional [place] Measure 0=Not Assessed/NA 4=Minimal Assistance 1=Total Assistance 5=Supervision or Setup 2=Maximal Assistance 6=Modified [place] 3=Moderate Assistance 7=Complete IndependenceIRFPAI Quality Coding Scale 6 Independent with activity with or without an assistive device 5 Patient requires set up or clean up by helper. Patient completes activity by themselves 4 Supervision or touching assist (CGA). [place] provide cues , steadying assist 3 The helper provides less than half the effort to complete the activity 2 The helper provides more than half the effort to complete the activity 1 Dependent. The helper does all the effort to complete an activity 7 Patient refused to complete or attempt activity 9 The patient did not perform the activity before the current illness or injury 88 Not attempted due to Medical conditions or safety concerns Transfers (B, C, W/C) (FIM): 5 Sit to/from Stand: 5 Gait Training Gait (FIM): 2 Distance: 100'x5 Gait Level of Assist: 4 Gait Persons Needed: 1 Gait Assistive Device: Cane Single Point CGA, almost SBA but she does have occasional moments of unsteadiness but recovers herself Treatments transfers, ambulation Assessment Current Status: Fair Progress improving endurance, but it is still poor PT Short Term Goals Short Term Goals Time Frame: Aug 07, 2016 Transfers (B,C,W/C) (FIM): 5 Gait (FIM): 5 PT Checker Loader Goals Checker Loader Goals PT Checker Loader Goals Time Frame: Aug 17, 2016 Transfers (B,C,W/C) (FIM): 7 Sit to Lying (QC): 6 Lying-Sitting on Side/Bed(QC): 6 Sit to Stand (QC): 6 Rollin Roll Left to Right (QC): 6 Chair/Pyo-yn-Djpfx Xfer(QC): 6 Car Transfer (QC): 5 Does the Patient Walk: Yes Gait (FIM): 6 Gait distance (FIM): 3=150 ft Walk 10 feet (QC): 6 Walk 10ft-Uneven Surface(QC): 6 Walk 50ft with 2 Turns (QC): 6 Walk 150 ft (QC): 6 Gait Assistive Device: Cane Small Base Quad Does the Pt use WC or Scooter?: No Stairs (FIM): 5 # of Steps: 8 1 Step (curb) (QC): 5 4 Steps (QC): 6 12 Steps (QC): 88 Picking up an Object (QC): 4 PT Plan Problem List Problem List: Activity Tolerance, Functional Strength, Safety, Balance, Gait, Transfer, Bed Mobility Treatment/Plan Treatment Plan: Continue Plan of Care Treatment Plan: Bed Mobility, Education, Functional Activity Klaudia, Functional Strength, Group Therapy, Gait, Safety, Therapeutic Exercise, Transfers Treatment Duration: Aug 17, 2016 Visits Per Week: 10-15 Minutes/Day (M-F): 60-90 Safety Risks/Education Patient Education: Gait Training, Transfer Techniques, Safety Issues Teaching Recipient: Patient Teaching Methods: Demonstration, Discussion Response to Teaching: Reinforcement Needed Time/GCodes Time In: 1330 Time Out: 1400 Total Billed Treatment Time: 30 Total Billed Treatment 1 visit GT 30' JACQUELINE ALVARADO PT Jul 31, 2016 14:00
--- NOTE | 2016-07-31 14:46 | Occupational Ther Daily Note ---
OT Current Status-Daily Note Subjective Pt seen in room, up in recliner, agreeable to OT. No pain mentioned. Appearance Alert, cooperative Mental Status/Objective Functional [place] Measure 0=Not Assessed/NA 4=Minimal Assistance 1=Total Assistance 5=Supervision or Setup 2=Maximal Assistance 6=Modified [place] 3=Moderate Assistance 7=Complete [place] ADL-Treatment Functional [place] Measure 0=Not Assessed/NA 4=Minimal Assistance 1=Total Assistance 5=Supervision or Setup 2=Maximal Assistance 6=Modified [place] 3=Moderate Assistance 7=Complete IndependenceIRFPAI Quality Coding Scale 6 Independent with activity with or without an assistive device 5 Patient requires set up or clean up by helper. Patient completes activity by themselves 4 Supervision or touching assist (CGA). [place] provide cues , steadying assist 3 The helper provides less than half the effort to complete the activity 2 The helper provides more than half the effort to complete the activity 1 Dependent. The helper does all the effort to complete an activity 7 Patient refused to complete or attempt activity 9 The patient did not perform the activity before the current illness or injury 88 Not attempted due to Medical conditions or safety concerns Toileting (FIM): 5 (This afternoon was able to get pants up over R hip in back. Managed hygiene. BSC over toilet) Toilet/Commode Transfer (FIM): 5 (BSC over toilet) Other Treatment Pt walked CGA-SBA with SPC with tripod base to bathroom and to gym. Pt did UE exercise with L UE with 1# weight on wrist. Did arc activity x 2 sets. Pound Keeper strength tested with dynamometer. R 46, 44, 42 lb (average 44 lb). L 48, 44, 42 lb (average 44.7 lb). Pt said that this did not cause pain in her R shoulder as long as she was conscientiously not tensing her shoulder. Pt provided with red theraputty (medium intensity) and shown exercises she can do on her own to strengthen hands. Skilled education on the exercises and monitoring so that she doesn't have discomfort in R shoulder. O2 at 2L/min nc throughout tx, with O2 sats at 95% but HR over 100 (pt said this was normal for her after walking or exercise). Care transferred to PT. Education OT Patient Education: Exercise program, Progress toward Goal/Update tx plan, Safety issues Teaching Recipient: Patient Teaching Methods: Demonstration, Discussion Response to Teaching: Verbalize Understanding, Return Demonstration, Reinforcement Needed OT Short Term Goals Short Term Goals Time Frame: Aug 10, 2016 Lower Body Dressing(FIM): 5 Toileting(FIM): 5 Transfers (B,C,W/C) (FIM): 5 Toilet/Commode Transfer(FIM): 5 Additional Short Term Goals: 1-Demonstrate ADL Tasks, 2-Verbalize Understanding , 3-ImproveStrength/Klaudia 1=Demonstrate adherence to instructed precautions during ADL tasks. 2=Patient will verbalize/demonstrate understanding of assistive devices/ modifications for ADL. 3=Patient will improve strength/tolerance for activity to enable patient to perform ADL's. OT Senior Care Goals Senior Care Goals Time Frame: Aug 17, 2016 Eating (FIM): 7 Eating (QC): 6 Groomin Oral Hygiene (QC): 6 Bathing(FIM): 6 Shower/Bathe Self (QC): 6 Upper Body Dressing(FIM): 6 Upper Body Dressing (QC): 6 Lower Body Dressing(FIM): 6 Lower Body Dressing (QC): 6 On/Off Footwear (QC): 6 Toileting(FIM): 6 Toileting Hygiene (QC): 6 Toilet/Commode Transfer(FIM): 6 Toilet/Commode Transfer (QC): 6 Shower Transfer(FIM): 6 Additional Goals: 1-Demonstrate ADL Tasks, 2-Verbalize Understanding, 3- ImproveStrength/Klaudia 1=Demonstrate adherence to instructed precautions during ADL tasks. 2=Patient will verbalize/demonstrate understanding of assistive devices/ modifications for ADL. 3=Patient will improve strength/tolerance for activity to enable patient to perform ADL's. OT Education/Plan Problem List/Assessment Pt would benefit from skilled OT to increase her independence in basic self care to allow her to return home safely to live with her and son. Discharge Recommendations Plan/Recommendations: Continue POC Treatment Plan/Plan of Care Patient would benefit from OT for education, treatment and training to promote independence in ADL's, mobility, safety and/or upper extremity function for ADL' s. Plan of Care: ADL Retraining, Functional Mobility, Group Exercise/Act as Ind ( education, exercise, activity tolerance, funct activities, socialization), UE Funct Exercise/Act, UE Neuromus Re-Ed/Coord Treatment Duration: Aug 17, 2016 Visits Per Week: 10-12 Minutes/Day (M-F): 75-90 Minutes/Day (Sat/Porter): PRN Agreement: Yes Rehab Potential: Good Time/GCodes Start Time: 13:00 Stop Time: 13:30 Total Time Billed (hr/min): 30 Billed Treatment Time visit, ADL 5 minutes, exercise 25 minutes PRANAY GAVIRIA OT Jul 31, 2016 14:46
[2016-07-31 18:04] VITALS: BP 123/67
[2016-07-31] MEDS: diphenhydrAMINE 25 MG TAB (BENADRYL) PO SCH (20:56)
[2016-07-31] MEDS: FLUoxetine HCL 20 MG (PROzac) CAP PO SCH (20:57)
[2016-07-31] MEDS: BACLOFEN 10 MG (LIORESAL) TAB PO SCH (20:57)
[2016-07-31] MEDS: LACTOBACILLUS Acidoph/Bulgar (LACTINEX/FLORANEX) TAB PO SCH (20:57)
[2016-07-31] MEDS: SIMvastatin 40 MG (ZOCOR) TAB PO SCH (20:57)
[2016-08-01 05:53] VITALS: BP 143/84
[2016-08-01] MEDS: SUCRALFATE 1 GM (CARAFATE) TAB PO SCH ×4 (06:00→21:28)
[2016-08-01 06:16] LABS: BASOPHILS % (AUTO) 0 % (0-10); EOSINOPHILS # (AUTO) 0.5 10^3/uL (0.0-0.3); EOSINOPHILS % (AUTO) 4 % (0-10); LYMPHOCYTES # (AUTO) 1.5 X 10^3 (1.0-4.0); LYMPHOCYTES % (AUTO) 12 % (12-44); MEAN CORPUSCULAR HEMOGLOBIN 30 PG (25-34); MEAN CORPUSCULAR HGB CONC 32 G/DL (32-36); MEAN CORPUSCULAR VOLUME 94 FL (80-99); MEAN PLATELET VOLUME 10.8 FL (7.4-10.4); MONOCYTES # (AUTO) 2.2 X 10^3 (0.0-1.0); MONOCYTES % (AUTO) 17 % (0-12); NEUTROPHILS # (AUTO) 8.5 X 10^3 (1.8-7.8); NEUTROPHILS % (AUTO) 67 % (42-75); PLATELET COUNT 462 10^3/uL (130-400); RED BLOOD COUNT 4.19 10^6/uL (4.35-5.85); RED CELL DISTRIBUTION WIDTH 15.4 % (10.0-14.5); WHITE BLOOD COUNT 12.7 10^3/uL (4.3-11.0)
[2016-08-01] MEDS: LEVOTHYROXINE 25 MCG (LEVOTHROID) TAB PO SCH (06:27)
[2016-08-01] MEDS: PANTOPRAZOLE 40 MG (PROTONIX) TAB PO SCH ×2 (06:27→21:28)
[2016-08-01] MEDS: LEVOTHYROXINE 112 MCG (LEVOTHROID) TAB PO SCH (06:27)
[2016-08-01] MEDS: MULTIVIT W/MINERALS TAB (THERAGRAN M) PO SCH (06:27)
[2016-08-01] MEDS: HYDROcodone/APAP 5 MG/325 MG (LORTAB) TAB PO PRN ×2 (06:33→12:34)
[2016-08-01] MEDS: RT-ALBUTEROL/IPRATROPIUM 3 ML (DUONEB) VIAL INH SCH ×4 (06:37→19:48)
[2016-08-01 06:40] LABS: ALANINE AMINOTRANSFERASE 19 U/L (0-55); ALBUMIN 3.3 GM/DL (3.2-4.5); ASPARTATE AMINO TRANSFERASE 18 U/L (5-34); BILIRUBIN,TOTAL 0.4 MG/DL (0.1-1.0); BLOOD UREA NITROGEN 13 MG/DL (7-18); BUN/CREATININE RATIO 20 (0-20); CALCIUM 9.1 MG/DL (8.5-10.1); CARBON DIOXIDE 32 MMOL/L (21-32); CHLORIDE 102 MMOL/L (98-107); CREATININE SERUM 0.64 MG/DL (0.60-1.30); GFR ESTIMATED > 60; GLUCOSE 92 MG/DL (70-105); POTASSIUM 3.3 MMOL/L (3.6-5.0); TOTAL PROTEIN 5.6 GM/DL (6.4-8.2)
[2016-08-01 06:50] LABS: ANION GAP 10 MMOL/L (5-14); SODIUM 144 MMOL/L (135-145)
[2016-08-01] MEDS ORDERED: KCL 20 MEQ TAB (K-DUR) PO NR (07:45)
--- NOTE | 2016-08-01 08:24 | Progress Note (SOAP) ---
Subjective Time Seen by Provider: 08:20 Subjective/Events-last exam patient did not sleep well last night. Patient feels weak today. Debility. COPD. Morbid obesity. Right clavicle fracture Right shoulder dislocation. Patient work in progress. To do chest x-ray this Saturday Objective Exam Vital Signs Date Time Temp Pulse Resp B/P (MAP) Pulse Ox O2 Delivery O2 Flow Rate FiO2 08/01/16 06:37 97 Nasal Cannula 2.00 08/01/16 05:53 97.4 89 20 143/84 97 Nasal Cannula 2.00 07/31/16 21:00 Nasal Cannula 2.00 07/31/16 19:26 93 Nasal Cannula 2.00 07/31/16 18:04 98.7 88 18 123/67 96 Nasal Cannula 2.00 07/31/16 15:29 94 Nasal Cannula 2.00 07/31/16 09:01 96 Nasal Cannula 2.00 I & O 08/01/16 07:00 Intake Total 1900 ml Balance 1900 ml Capillary Refill : Less Than 3 Seconds General Appearance: No Apparent Distress, WD/WN HEENT: Normal ENT Inspection Respiratory: Decreased Breath Sounds Cardiovascular: Regular Rate, Rhythm, No Murmur Results Lab Laboratory Tests 08/01/16 05:27 Laboratory Tests 08/01/16 05:27: White Blood Count 12.7H, Red Blood Count 4.19L, Hemoglobin 12.4, Hematocrit 39, Mean Corpuscular Volume 94, Mean Corpuscular Hemoglobin 30, Mean Corpuscular Hemoglobin Concent 32, Red Cell Distribution Width 15.4H, Platelet Count 462H, Mean Platelet Volume 10.8H, Neutrophils (%) (Auto) 67, Lymphocytes (%) (Auto) 12 , Monocytes (%) (Auto) 17H, Eosinophils (%) (Auto) 4, Basophils (%) (Auto) 0, Neutrophils # (Auto) 8.5H, Lymphocytes # (Auto) 1.5, Monocytes # (Auto) 2.2H, Eosinophils # (Auto) 0.5H, Basophils # (Auto) 0.0, Sodium Level 144, Potassium Level 3.3L, Chloride Level 102, Carbon Dioxide Level 32, Anion Gap 10, Blood Urea Nitrogen 13, Creatinine 0.64, Estimat Glomerular Filtration Rate > 60, BUN/ Creatinine Ratio 20, Glucose Level 92, Calcium Level 9.1, Total Bilirubin 0.4, Aspartate Amino Transf (AST/SGOT) 18, Alanine Aminotransferase (ALT/SGPT) 19, Alkaline Phosphatase 118, Total Protein 5.6L, Albumin 3.3 Assessment/Plan Assessment/Plan Assess & Plan/Chief Complaint debility. COPD. Morbid obesity. Hypothyroid. Right clavicle fracture. Right shoulder dislocation. Pleurocentesis. Pneumothorax. . 08/01/16. Debility. COPD. Morbid obesity. Hypothyroid. Right clavicle fracture. Right shoulder dislocation. Thoracocentesis. Patient tired since did not sleep well last night Clinical Quality Measures DVT/VTE Risk/Contraindication: Risk Factor Score Per Nursin RFS Level Per Nursing on Admit: 4+=Very High FRED GRAVES DO Aug 01, 2016 08:24
[2016-08-01] MEDS: guaiFENesin (MUCINEX) 600 MG TAB PO SCH ×2 (08:42→21:28)
[2016-08-01] MEDS: ALPRAZolam 0.5 MG (XANAX) TAB PO SCH ×2 (08:42→21:28)
[2016-08-01] MEDS: DOCUSATE SODIUM 100 MG (COLACE) CAP PO SCH ×2 (08:42→21:28)
[2016-08-01] MEDS: predniSONE 10 MG TAB PO SCH (08:44)
--- NOTE | 2016-08-01 10:58 | Occupational Ther Daily Note ---
OT Current Status-Daily Note Subjective Pt seen in room, up in recliner, reported she didn't sleep well last night, Pain not mentioned. Appearance Alert, cooperative. Mental Status/Objective Functional [place] Measure 0=Not Assessed/NA 4=Minimal Assistance 1=Total Assistance 5=Supervision or Setup 2=Maximal Assistance 6=Modified [place] 3=Moderate Assistance 7=Complete [place] ADL-Treatment Pt education on holding O2 tubing while she walks. Pt educ on sitting to brush her teeth and wash her face to conserve energy. Functional [place] Measure 0=Not Assessed/NA 4=Minimal Assistance 1=Total Assistance 5=Supervision or Setup 2=Maximal Assistance 6=Modified [place] 3=Moderate Assistance 7=Complete IndependenceIRFPAI Quality Coding Scale 6 Independent with activity with or without an assistive device 5 Patient requires set up or clean up by helper. Patient completes activity by themselves 4 Supervision or touching assist (CGA). [place] provide cues , steadying assist 3 The helper provides less than half the effort to complete the activity 2 The helper provides more than half the effort to complete the activity 1 Dependent. The helper does all the effort to complete an activity 7 Patient refused to complete or attempt activity 9 The patient did not perform the activity before the current illness or injury 88 Not attempted due to Medical conditions or safety concerns Grooming (FIM): 5 (SBA standing at sink, then setup to get chair with arms so that she could sit to brush her teeth and wash face/hands) Toileting (FIM): 4 (Setup to get clean Depends, which she was able to doff/don herself. Needed just a little help to pull pants up over R hip. managed hygiene) Toilet/Commode Transfer (FIM): 5 (SBA getting on/off BSC over toilet) Other Treatment Pt walked SBA to gym using SPC with tripod, managing O2 tubing with L hand but OT pulling portable tank. Pt educ on musculature of shoulders and forearms/ hands during exercise. Pt did active shoulder shrugs and retraction, with tactile cues to help relax R shoulder and not "use it" Also did AROM R elbow, with passive stretch into extension (a little tight) and skilled cue for initiating elbow flex. Also did pron/sup and wrist flex/ext. Pt educ on intrinsic exercises which she was able to demonstrate without muscle tightness. 10 reps most AROM. Sling repositioned. Pt walked back to room with SBA for safety, help pulling O2 tank. Pt left up in recliner, R arm supported on pillow , all needs met. O2 at 2L/min throughout. Education OT Patient Education: Exercise program, Progress toward Goal/Update tx plan, Purpose of tx/functional activities Teaching Recipient: Patient Teaching Methods: Demonstration, Discussion Response to Teaching: Verbalize Understanding, Return Demonstration, Reinforcement Needed OT Short Term Goals Short Term Goals Time Frame: Aug 10, 2016 Lower Body Dressing(FIM): 5 Toileting(FIM): 5 Transfers (B,C,W/C) (FIM): 5 Toilet/Commode Transfer(FIM): 5 Additional Short Term Goals: 1-Demonstrate ADL Tasks, 2-Verbalize Understanding , 3-ImproveStrength/Klaudia 1=Demonstrate adherence to instructed precautions during ADL tasks. 2=Patient will verbalize/demonstrate understanding of assistive devices/ modifications for ADL. 3=Patient will improve strength/tolerance for activity to enable patient to perform ADL's. OT Service Desk Analyst Goals Custodial Goals Time Frame: Aug 17, 2016 Eating (FIM): 7 Eating (QC): 6 Groomin Oral Hygiene (QC): 6 Bathing(FIM): 6 Shower/Bathe Self (QC): 6 Upper Body Dressing(FIM): 6 Upper Body Dressing (QC): 6 Lower Body Dressing(FIM): 6 Lower Body Dressing (QC): 6 On/Off Footwear (QC): 6 Toileting(FIM): 6 Toileting Hygiene (QC): 6 Toilet/Commode Transfer(FIM): 6 Toilet/Commode Transfer (QC): 6 Shower Transfer(FIM): 6 Additional Goals: 1-Demonstrate ADL Tasks, 2-Verbalize Understanding, 3- ImproveStrength/Klaudia 1=Demonstrate adherence to instructed precautions during ADL tasks. 2=Patient will verbalize/demonstrate understanding of assistive devices/ modifications for ADL. 3=Patient will improve strength/tolerance for activity to enable patient to perform ADL's. OT Education/Plan Problem List/Assessment Pt would benefit from skilled OT to increase her independence in basic self care to allow her to return home safely to live with her and son. Discharge Recommendations Plan/Recommendations: Continue POC Treatment Plan/Plan of Care Patient would benefit from OT for education, treatment and training to promote independence in ADL's, mobility, safety and/or upper extremity function for ADL' s. Plan of Care: ADL Retraining, Functional Mobility, Group Exercise/Act as Ind ( education, exercise, activity tolerance, funct activities, socialization), UE Funct Exercise/Act, UE Neuromus Re-Ed/Coord Treatment Duration: Aug 17, 2016 Visits Per Week: 10-12 Minutes/Day (M-F): 75-90 Minutes/Day (Sat/Porter): PRN Agreement: Yes Rehab Potential: Good Time/GCodes Start Time: 08:30 Stop Time: 09:30 Total Time Billed (hr/min): 60 Billed Treatment Time visit, 25 minutes ADL, 35 minutes exercise PRANAY GAVIRIA OT Aug 01, 2016 10:58
--- NOTE | 2016-08-01 11:09 | Physical Therapy Daily Note ---
PT Daily Note-Current Subjective Agrees to Rx but states she did not sleep well and is now so very tired. Pain Numeric Pain Scale: 3 Location: Right Location Body Site: Shoulder Pain Description: Ache Transfers Functional [place] Measure 0=Not Assessed/NA 4=Minimal Assistance 1=Total Assistance 5=Supervision or Setup 2=Maximal Assistance 6=Modified [place] 3=Moderate Assistance 7=Complete IndependenceIRFPAI Quality Coding Scale 6 Independent with activity with or without an assistive device 5 Patient requires set up or clean up by helper. Patient completes activity by themselves 4 Supervision or touching assist (CGA). [place] provide cues , steadying assist 3 The helper provides less than half the effort to complete the activity 2 The helper provides more than half the effort to complete the activity 1 Dependent. The helper does all the effort to complete an activity 7 Patient refused to complete or attempt activity 9 The patient did not perform the activity before the current illness or injury 88 Not attempted due to Medical conditions or safety concerns Transfers (B, C, W/C) (FIM): 5 Scootin Rollin Supine to/from Sit: 5 Sit to/from Stand: 6 Bed to/from Chair: 5 pt. does not lay down at home secondary to breathing issues. sleeps in recliner. Gait Training Does the Patient Walk?: Yes Gait (FIM): 5 Distance (FIM): 3=150 ft (x2) Gait Level of Assist: 5 Gait Persons Needed: 1 Gait Assistive Device: Cane Single Point assist for O2 Wheelchair Training Does the Pt Use a Wheelchair?: No Exercises Supine Ex: Ankle pumps Seated Therapy Exercises: Ankle pumps, Sit to stand, Long arc quads, Hip flexion, Hip abd/add Seated Reps: 10 NuStep Minutes: 10 NuStep Workload: 2 Neuromuscular leg presses on Nustep x12 Assessment Current Status: Good Progress PT Short Term Goals Short Term Goals Time Frame: Aug 07, 2016 Transfers (B,C,W/C) (FIM): 5 Gait (FIM): 5 PT Head Teacher Goals Head Teacher Goals PT Shelter Goals Time Frame: Aug 17, 2016 Transfers (B,C,W/C) (FIM): 7 Sit to Lying (QC): 6 Lying-Sitting on Side/Bed(QC): 6 Sit to Stand (QC): 6 Rollin Roll Left to Right (QC): 6 Chair/Swp-ee-Foacb Xfer(QC): 6 Car Transfer (QC): 5 Does the Patient Walk: Yes Gait (FIM): 6 Gait distance (FIM): 3=150 ft Walk 10 feet (QC): 6 Walk 10ft-Uneven Surface(QC): 6 Walk 50ft with 2 Turns (QC): 6 Walk 150 ft (QC): 6 Gait Assistive Device: Cane Small Base Quad Does the Pt use WC or Scooter?: No Stairs (FIM): 5 # of Steps: 8 1 Step (curb) (QC): 5 4 Steps (QC): 6 12 Steps (QC): 88 Picking up an Object (QC): 4 PT Plan Treatment/Plan Treatment Plan: Continue Plan of Care Treatment Plan: Bed Mobility, Education, Functional Activity Klaudia, Functional Strength, Group Therapy, Gait, Safety, Therapeutic Exercise, Transfers Treatment Duration: Aug 17, 2016 Visits Per Week: 10-15 Minutes/Day (M-F): 60-90 Safety Risks/Education Patient Education: Gait Training, Transfer Techniques Teaching Recipient: Patient Teaching Methods: Demonstration, Discussion Response to Teaching: Verbalize Understanding, Return Demonstration, Reinforcement Needed Time/GCodes Time In: 1100 Time Out: 1200 Total Billed Treatment Time: 60 Total Billed Treatment 1,GT15,EX30m,FA15 G Codes Necessary: TONY Mccallum CREDIT CARD CLERK Aug 01, 2016 11:09
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
--- NOTE | 2016-08-01 15:03 | Occupational Ther Daily Note ---
OT Current Status-Daily Note Subjective Pt seen in room, up in recliner, agreeable to OT. No pain mentioned. Appearance Alert, cooperative Mental Status/Objective Functional [place] Measure 0=Not Assessed/NA 4=Minimal Assistance 1=Total Assistance 5=Supervision or Setup 2=Maximal Assistance 6=Modified [place] 3=Moderate Assistance 7=Complete [place] ADL-Treatment Functional [place] Measure 0=Not Assessed/NA 4=Minimal Assistance 1=Total Assistance 5=Supervision or Setup 2=Maximal Assistance 6=Modified [place] 3=Moderate Assistance 7=Complete IndependenceIRFPAI Quality Coding Scale 6 Independent with activity with or without an assistive device 5 Patient requires set up or clean up by helper. Patient completes activity by themselves 4 Supervision or touching assist (CGA). [place] provide cues , steadying assist 3 The helper provides less than half the effort to complete the activity 2 The helper provides more than half the effort to complete the activity 1 Dependent. The helper does all the effort to complete an activity 7 Patient refused to complete or attempt activity 9 The patient did not perform the activity before the current illness or injury 88 Not attempted due to Medical conditions or safety concerns Other Treatment Pt was able to get up out of recliner but with some effort. Walked SBA with SPC to gym, with pt managing O2 tubing but OT bringing portable tank. In gym, pt able to get into chair with arms with no help. Pt did L UE strengthening tasks with 1# weight on L wrist. At end of tx, pt reported, "I can really feel that work." Strengthening to help with transfers and standing during ADLs. Pt struggled just a little getting up out of chair. Walked back to room same assist and was left up in recliner, all needs met. O2 hooked up to wall at 2L/ min. Education OT Patient Education: Exercise program, Purpose of tx/functional activities Teaching Recipient: Patient Teaching Methods: Discussion Response to Teaching: Verbalize Understanding OT Short Term Goals Short Term Goals Time Frame: Aug 10, 2016 Lower Body Dressing(FIM): 5 Toileting(FIM): 5 Transfers (B,C,W/C) (FIM): 5 Toilet/Commode Transfer(FIM): 5 Additional Short Term Goals: 1-Demonstrate ADL Tasks, 2-Verbalize Understanding , 3-ImproveStrength/Klaudia 1=Demonstrate adherence to instructed precautions during ADL tasks. 2=Patient will verbalize/demonstrate understanding of assistive devices/ modifications for ADL. 3=Patient will improve strength/tolerance for activity to enable patient to perform ADL's. OT Analysis Tester Goals Detention Goals Time Frame: Aug 17, 2016 Eating (FIM): 7 Eating (QC): 6 Groomin Oral Hygiene (QC): 6 Bathing(FIM): 6 Shower/Bathe Self (QC): 6 Upper Body Dressing(FIM): 6 Upper Body Dressing (QC): 6 Lower Body Dressing(FIM): 6 Lower Body Dressing (QC): 6 On/Off Footwear (QC): 6 Toileting(FIM): 6 Toileting Hygiene (QC): 6 Toilet/Commode Transfer(FIM): 6 Toilet/Commode Transfer (QC): 6 Shower Transfer(FIM): 6 Additional Goals: 1-Demonstrate ADL Tasks, 2-Verbalize Understanding, 3- ImproveStrength/Klaudia 1=Demonstrate adherence to instructed precautions during ADL tasks. 2=Patient will verbalize/demonstrate understanding of assistive devices/ modifications for ADL. 3=Patient will improve strength/tolerance for activity to enable patient to perform ADL's. OT Education/Plan Problem List/Assessment Pt would benefit from skilled OT to increase her independence in basic self care to allow her to return home safely to live with her and son. Discharge Recommendations Plan/Recommendations: Continue POC Treatment Plan/Plan of Care Patient would benefit from OT for education, treatment and training to promote independence in ADL's, mobility, safety and/or upper extremity function for ADL' s. Plan of Care: ADL Retraining, Functional Mobility, Group Exercise/Act as Ind ( education, exercise, activity tolerance, funct activities, socialization), UE Funct Exercise/Act, UE Neuromus Re-Ed/Coord Treatment Duration: Aug 17, 2016 Visits Per Week: 10-12 Minutes/Day (M-F): 75-90 Minutes/Day (Sat/Porter): PRN Agreement: Yes Rehab Potential: Good Time/GCodes Start Time: 13:00 Stop Time: 13:30 Total Time Billed (hr/min): 30 Billed Treatment Time visit, 30 minutes exercise PRANAY GAVIRIA OT Aug 01, 2016 15:03
--- NOTE | 2016-08-01 15:22 | Physical Therapy Daily Note ---
PT Daily Note-Current Subjective Agrees to rx, will get in bed for TRF and exerc Pain Numeric Pain Scale: 0-No Pain Mental Status Patient Orientation: Normal For Age Attachments: Oxygen Transfers Functional [place] Measure 0=Not Assessed/NA 4=Minimal Assistance 1=Total Assistance 5=Supervision or Setup 2=Maximal Assistance 6=Modified [place] 3=Moderate Assistance 7=Complete IndependenceIRFPAI Quality Coding Scale 6 Independent with activity with or without an assistive device 5 Patient requires set up or clean up by helper. Patient completes activity by themselves 4 Supervision or touching assist (CGA). [place] provide cues , steadying assist 3 The helper provides less than half the effort to complete the activity 2 The helper provides more than half the effort to complete the activity 1 Dependent. The helper does all the effort to complete an activity 7 Patient refused to complete or attempt activity 9 The patient did not perform the activity before the current illness or injury 88 Not attempted due to Medical conditions or safety concerns in out chair and bed all SBA, pt. needs HOB up to get in out Gait Training Gait Assistive Device: Cane Single Point [id number] with assist for O2 Exercises Supine Ex: Bridging, Ankle pumps, Quad Set, Rolling, Glut sets, Heel Slides, Short Arc Quads, Scooting, Hip abd/add Supine Reps: 12 Assessment Current Status: Good Progress no LOB, breathing inhibits further gait PT Short Term Goals Short Term Goals Time Frame: Aug 07, 2016 Transfers (B,C,W/C) (FIM): 5 Gait (FIM): 5 PT Machine Welder Goals Long-Term Goals PT Machine Welder Goals Time Frame: Aug 17, 2016 Transfers (B,C,W/C) (FIM): 7 Sit to Lying (QC): 6 Lying-Sitting on Side/Bed(QC): 6 Sit to Stand (QC): 6 Rollin Roll Left to Right (QC): 6 Chair/Yfp-yx-Spcwl Xfer(QC): 6 Car Transfer (QC): 5 Does the Patient Walk: Yes Gait (FIM): 6 Gait distance (FIM): 3=150 ft Walk 10 feet (QC): 6 Walk 10ft-Uneven Surface(QC): 6 Walk 50ft with 2 Turns (QC): 6 Walk 150 ft (QC): 6 Gait Assistive Device: Cane Small Base Quad Does the Pt use WC or Scooter?: No Stairs (FIM): 5 # of Steps: 8 1 Step (curb) (QC): 5 4 Steps (QC): 6 12 Steps (QC): 88 Picking up an Object (QC): 4 PT Plan Treatment/Plan Treatment Plan: Continue Plan of Care Treatment Plan: Bed Mobility, Education, Functional Activity Klaudia, Functional Strength, Group Therapy, Gait, Safety, Therapeutic Exercise, Transfers Treatment Duration: Aug 17, 2016 Visits Per Week: 10-15 Minutes/Day (M-F): 60-90 Safety Risks/Education Patient Education: Gait Training, Transfer Techniques, Issued Written HEP Teaching Recipient: Patient Teaching Methods: Demonstration, Discussion Response to Teaching: Verbalize Understanding, Return Demonstration, Reinforcement Needed Time/GCodes Time In: 1440 Time Out: 1510 Total Billed Treatment Time: 30 Total Billed Treatment 1,FA15m,EX15m G Codes Necessary: TONY Mccallum PLASMA CUTTING MACHINE OPERATOR Aug 01, 2016 15:21
[2016-08-01 18:00] VITALS: BP 130/85
[2016-08-01] MEDS: diphenhydrAMINE 25 MG TAB (BENADRYL) PO SCH (21:27)
[2016-08-01] MEDS: FLUoxetine HCL 20 MG (PROzac) CAP PO SCH (21:28)
[2016-08-01] MEDS: SIMvastatin 40 MG (ZOCOR) TAB PO SCH (21:28)
[2016-08-01] MEDS: LACTOBACILLUS Acidoph/Bulgar (LACTINEX/FLORANEX) TAB PO SCH (21:28)
[2016-08-01] MEDS: BACLOFEN 10 MG (LIORESAL) TAB PO SCH (21:28)
[2016-08-02] MEDS: LEVOTHYROXINE 112 MCG (LEVOTHROID) TAB PO SCH (05:57)
[2016-08-02] MEDS: LEVOTHYROXINE 25 MCG (LEVOTHROID) TAB PO SCH (05:58)
[2016-08-02] MEDS: SUCRALFATE 1 GM (CARAFATE) TAB PO SCH ×4 (05:58→21:37)
[2016-08-02 06:00] VITALS: BP 160/78
[2016-08-02] MEDS: predniSONE 10 MG TAB PO SCH (06:00)
[2016-08-02] MEDS: PANTOPRAZOLE 40 MG (PROTONIX) TAB PO SCH ×2 (06:00→20:07)
[2016-08-02] MEDS: MULTIVIT W/MINERALS TAB (THERAGRAN M) PO SCH (06:00)
[2016-08-02] MEDS: RT-ALBUTEROL/IPRATROPIUM 3 ML (DUONEB) VIAL INH SCH ×4 (07:02→19:21)
[2016-08-02] MEDS ORDERED: KCL 20 MEQ TAB (K-DUR) PO NR (08:15)
--- NOTE | 2016-08-02 08:15 | Progress Note (SOAP) ---
Subjective Time Seen by Provider: 08:10 Subjective/Events-last exam patient feeling better today. Patient slept last night. Patient having sinus drainage. Patient exchanging air better. Patient has slight wheeze Objective Exam Vital Signs Date Time Temp Pulse Resp B/P (MAP) Pulse Ox O2 Delivery O2 Flow Rate FiO2 08/02/16 07:04 98 08/02/16 07:04 98 Nasal Cannula 4.00 08/02/16 06:00 98.1 92 16 160/78 95 Nasal Cannula 2.00 08/01/16 21:00 96 Nasal Cannula 2.00 08/01/16 19:48 95 Nasal Cannula 2.00 08/01/16 18:00 97.4 90 16 130/85 96 Nasal Cannula 2.00 08/01/16 09:00 96 Nasal Cannula 2.00 I & O 08/02/16 07:00 Intake Total 1100 ml Balance 1100 ml Capillary Refill : Less Than 3 Seconds General Appearance: No Apparent Distress, WD/WN, Obese HEENT: Normal ENT Inspection Neck: Full Range of Motion, Normal Inspection Respiratory: Chest Non Tender, No Accessory Muscle Use, No Respiratory Distress , Decreased Breath Sounds, Wheezing Cardiovascular: Regular Rate, Rhythm, No Murmur Assessment/Plan Assessment/Plan Assess & Plan/Chief Complaint debility. COPD. Morbid obesity. Hypothyroid. Right clavicle fracture. Right shoulder dislocation. Pleurocentesis. Pneumothorax. . 08/01/16. Debility. COPD. Morbid obesity. Hypothyroid. Right clavicle fracture. Right shoulder dislocation. Thoracocentesis. Patient tired since did not sleep well last night. . 08/02/16. Debility. COPD. Sarcoidosis. Morbid obesity. Right shoulder dislocation. Patient had a good night sleep. Patient feeling better Clinical Quality Measures DVT/VTE Risk/Contraindication: Risk Factor Score Per Nursin RFS Level Per Nursing on Admit: 4+=Very High FRDE GRAVES DO Aug 02, 2016 08:15
--- NOTE | 2016-08-02 08:18 | PM & R (SOAP) Progress Note ---
Subjective Time Seen by Provider: 07:45 Subjective/Events-last exam Patient was seen in her room this AM Progressing well with therapies K provided for Hypokalemia Repeat Labs ordered for AM Patient SBA for transfers and gait with SPC Review of Systems Pulmonary: Dyspnea Gastrointestinal: Constipation Objective Exam Last Set of Vital Signs Vital Signs Date Time Temp Pulse Resp B/P (MAP) Pulse Ox O2 Delivery O2 Flow Rate FiO2 08/02/16 07:04 98 08/02/16 07:04 Nasal Cannula 4.00 08/02/16 06:00 98.1 92 16 160/78 Capillary Refill : Less Than 3 Seconds I&O Bad tableGeneral: Alert, Oriented X3, Cooperative, No Acute Distress HEENT: Atraumatic, PERRLA, EOMI, Mucous Memb Moist/Universal, Other (02 by N/C inplace) Neck: Supple, No JVD Lungs: Other (few crackles at bases) Heart: Regular Rate Abdomen: Normal Bowel Sounds, Soft, No Tenderness, Other (obese) Extremities: No Edema Neuro: Other (RT arm in sling .generalized weakness) Results Lab Laboratory Tests 08/01/16 05:27: White Blood Count 12.7H, Red Blood Count 4.19L, Hemoglobin 12.4, Hematocrit 39, Mean Corpuscular Volume 94, Mean Corpuscular Hemoglobin 30, Mean Corpuscular Hemoglobin Concent 32, Red Cell Distribution Width 15.4H, Platelet Count 462H, Mean Platelet Volume 10.8H, Neutrophils (%) (Auto) 67, Lymphocytes (%) (Auto) 12 , Monocytes (%) (Auto) 17H, Eosinophils (%) (Auto) 4, Basophils (%) (Auto) 0, Neutrophils # (Auto) 8.5H, Lymphocytes # (Auto) 1.5, Monocytes # (Auto) 2.2H, Eosinophils # (Auto) 0.5H, Basophils # (Auto) 0.0, Sodium Level 144, Potassium Level 3.3L, Chloride Level 102, Carbon Dioxide Level 32, Anion Gap 10, Blood Urea Nitrogen 13, Creatinine 0.64, Estimat Glomerular Filtration Rate > 60, BUN/ Creatinine Ratio 20, Glucose Level 92, Calcium Level 9.1, Total Bilirubin 0.4, Aspartate Amino Transf (AST/SGOT) 18, Alanine Aminotransferase (ALT/SGPT) 19, Alkaline Phosphatase 118, Total Protein 5.6L, Albumin 3.3 Assessment/Plan Assessment General debil secondary to acute on chronic resp insufficiency Pneumonia treated Copd 02 dependent Sarcoidosis on chronic steroid usage Obesity Plan Continue PT/OT Check labs and CXR-done repeat labs for am SCDS for dvy prophylaxis Team Conference held yesterday-See report for full functional update and POC and ELOS Appreciate DR quintero note and orders PHYLLIS KULKARNI MD Aug 02, 2016 08:18
[2016-08-02] MEDS: HYDROcodone/APAP 5 MG/325 MG (LORTAB) TAB PO PRN ×2 (08:31→12:29)
[2016-08-02] MEDS: DOCUSATE SODIUM 100 MG (COLACE) CAP PO SCH ×2 (08:31→20:07)
[2016-08-02] MEDS: LORATADINE (CLARITIN) 10 MG TAB PO SCH (08:31)
[2016-08-02] MEDS: ALPRAZolam 0.5 MG (XANAX) TAB PO SCH ×2 (08:31→20:07)
[2016-08-02] MEDS: guaiFENesin (MUCINEX) 600 MG TAB PO SCH ×2 (08:31→20:08)
--- NOTE | 2016-08-02 10:31 | Occupational Ther Daily Note ---
OT Current Status-Daily Note Subjective Pt seen in room, up in recliner, agreeable to OT. Pt reported she slept better last night. Appearance Alert, cooperative Mental Status/Objective Functional [place] Measure 0=Not Assessed/NA 4=Minimal Assistance 1=Total Assistance 5=Supervision or Setup 2=Maximal Assistance 6=Modified [place] 3=Moderate Assistance 7=Complete [place] ADL-Treatment Able to take sling off herself but needs help to put it on. Pt transferred to [facility], A, [facility] with tripod. Pt provided with written information on energy conservation and work simplification, to read and discuss this afternoon. All needs met. O2 in place. Functional [place] Measure 0=Not Assessed/NA 4=Minimal Assistance 1=Total Assistance 5=Supervision or Setup 2=Maximal Assistance 6=Modified [place] 3=Moderate Assistance 7=Complete IndependenceIRFPAI Quality Coding Scale 6 Independent with activity with or without an assistive device 5 Patient requires set up or clean up by helper. Patient completes activity by themselves 4 Supervision or touching assist (CGA). [place] provide cues , steadying assist 3 The helper provides less than half the effort to complete the activity 2 The helper provides more than half the effort to complete the activity 1 Dependent. The helper does all the effort to complete an activity 7 Patient refused to complete or attempt activity 9 The patient did not perform the activity before the current illness or injury 88 Not attempted due to Medical conditions or safety concerns Grooming (FIM): 6 (Mod I at sink, when sitting. Washed face and hands in shower. No makeup) Bathing (FIM): 5 (Washed and dried all parts except back, setup. Turned water on but not off. Retrieved towel from bar. Shower bench, grab bar, hand held shower) Upper Body (FIM): 5 (Skilled cues for modified technique) Lower Body Dressing (FIM): 5 (Able to get underwear on and pulled up easier than Depends. SBA when standing.) On/Off Footwear (QC): 5 (slip on shoes. Pt educ to sit to put shoes on/off, not stand, for safety) Toileting (FIM): 5 (Managed clothing and hygiene. ) Transfers (B, C, W/C) (FIM): 5 (Struggled just a little to get u p from chair with arms. Pt reported, "There's no way I could have done this last week.") Toilet/Commode Transfer (FIM): 5 (SBA, BSC over toilet, grab bar. Able to push up from arm rests) Shower Transfer(FIM): 5 (Able to pull herself up off shower bench today, demonstrating increased arm and leg strength. Grab bar) Education OT Patient Education: Modified ADL techniques, Purpose of tx/functional activities, Safety issues Teaching Recipient: Patient Teaching Methods: Discussion Response to Teaching: Verbalize Understanding OT Short Term Goals Short Term Goals Time Frame: Aug 10, 2016 Lower Body Dressing(FIM): 5 Toileting(FIM): 5 Transfers (B,C,W/C) (FIM): 5 Toilet/Commode Transfer(FIM): 5 Additional Short Term Goals: 1-Demonstrate ADL Tasks, 2-Verbalize Understanding , 3-ImproveStrength/Klaudia 1=Demonstrate adherence to instructed precautions during ADL tasks. 2=Patient will verbalize/demonstrate understanding of assistive devices/ modifications for ADL. 3=Patient will improve strength/tolerance for activity to enable patient to perform ADL's. OT Manager People Goals Manager People Goals Time Frame: Aug 17, 2016 Eating (FIM): 7 Eating (QC): 6 Groomin Oral Hygiene (QC): 6 Bathing(FIM): 6 Shower/Bathe Self (QC): 6 Upper Body Dressing(FIM): 6 Upper Body Dressing (QC): 6 Lower Body Dressing(FIM): 6 Lower Body Dressing (QC): 6 On/Off Footwear (QC): 6 Toileting(FIM): 6 Toileting Hygiene (QC): 6 Toilet/Commode Transfer(FIM): 6 Toilet/Commode Transfer (QC): 6 Shower Transfer(FIM): 6 Additional Goals: 1-Demonstrate ADL Tasks, 2-Verbalize Understanding, 3- ImproveStrength/Klaudia 1=Demonstrate adherence to instructed precautions during ADL tasks. 2=Patient will verbalize/demonstrate understanding of assistive devices/ modifications for ADL. 3=Patient will improve strength/tolerance for activity to enable patient to perform ADL's. OT Education/Plan Problem List/Assessment Pt would benefit from skilled OT to increase her independence in basic self care to allow her to return home safely to live with her and son. Discharge Recommendations Plan/Recommendations: Continue POC Treatment Plan/Plan of Care Patient would benefit from OT for education, treatment and training to promote independence in ADL's, mobility, safety and/or upper extremity function for ADL' s. Plan of Care: ADL Retraining, Functional Mobility, Group Exercise/Act as Ind ( education, exercise, activity tolerance, funct activities, socialization), UE Funct Exercise/Act, UE Neuromus Re-Ed/Coord Treatment Duration: Aug 17, 2016 Visits Per Week: 10-12 Minutes/Day (M-F): 75-90 Minutes/Day (Sat/Porter): PRN Agreement: Yes Rehab Potential: Good Time/GCodes Start Time: 08:30 Stop Time: 09:30 Total Time Billed (hr/min): 60 Billed Treatment Time visit, 60 minutes ADL PRANAY GAVIRIA OT Aug 02, 2016 10:31
--- NOTE | 2016-08-02 11:31 | Physical Therapy Daily Note ---
PT Daily Note-Current Subjective Pt sitting in recliner upon arrival. Pt agrees to PT although reports a little tight/sore today. Pain Numeric Pain Scale: 5-Moderate Pain Location: Right, Left Location Body Site: Thigh Pain Description: Tightness Mental Status Patient Orientation: Person, Place, Situation Attachments: Oxygen (2L) Transfers Functional [place] Measure 0=Not Assessed/NA 4=Minimal Assistance 1=Total Assistance 5=Supervision or Setup 2=Maximal Assistance 6=Modified [place] 3=Moderate Assistance 7=Complete IndependenceIRFPAI Quality Coding Scale 6 Independent with activity with or without an assistive device 5 Patient requires set up or clean up by helper. Patient completes activity by themselves 4 Supervision or touching assist (CGA). [place] provide cues , steadying assist 3 The helper provides less than half the effort to complete the activity 2 The helper provides more than half the effort to complete the activity 1 Dependent. The helper does all the effort to complete an activity 7 Patient refused to complete or attempt activity 9 The patient did not perform the activity before the current illness or injury 88 Not attempted due to Medical conditions or safety concerns Scootin Rollin Roll Left to Right (QC): 5 Supine to/from Sit: 5 Sit to/from Stand: 5 Sit to Lying (QC): 5 Sit to Stand (QC): 5 Chair/Bds-ln-Qkbgb Xfer(QC): 5 Bed to/from Chair: 5 Weight Bearing Weight Bearing Restriction: Full Weight Bearing Location Restriction: LE Bilateral Gait Training Does the Patient Walk?: Yes Distance (FIM): 3=150 ft Distance: 150' Walk 10 feet (QC): 5 Walk 50 ft with 2 Turns(QC): 5 Walk 150 ft (QC): 5 Gait Level of Assist: 5 Gait Persons Needed: 1 Gait Assistive Device: Cane Single Point Pt fatigues and gets SOB easy and requires rest break. Pt walks with slow shukri but steady, no LOB. Wheelchair Training Does the Pt Use a Wheelchair?: No Exercises Supine Ex: Ankle pumps, Quad Set, Heel Slides, Straight leg raise, Hip abd/add Supine Reps: 10 Seated Therapy Exercises: Ankle pumps, Long arc quads, Hip flexion, Kicking activity Seated Reps: 15 PT completes Ex and NuStep to aid with strengthening and activity tolerance which will assist with pt's balance especially with upright activities. NuStep Minutes: 10 NuStep Workload: 2 Treatments Pt transfers from recliner to standing using SPC at SBA. Pt ambulates in hallway using SPC at SBA and PT managing O2 tank. PT uses NuStep for 10m at Workload 2, completes Seated Ex in chair as well as Supine Ex in bed. Pt transfers from Supine to EOB at SBA with more effort. PT transfers from EOB to standing using SPC at SBA. Pt transfers back to recliner at end of tx to rest with all needs met at end of tx. Assessment Current Status: Good Progress Pt continues to make progress with strengthening and activity tolerance. PT Short Term Goals Short Term Goals Time Frame: Aug 07, 2016 Transfers (B,C,W/C) (FIM): 5 Gait (FIM): 5 PT Usp Goals Usp Goals PT Usp Goals Time Frame: Aug 17, 2016 Transfers (B,C,W/C) (FIM): 7 Sit to Lying (QC): 6 Lying-Sitting on Side/Bed(QC): 6 Sit to Stand (QC): 6 Rollin Roll Left to Right (QC): 6 Chair/Vqb-rm-Kychh Xfer(QC): 6 Car Transfer (QC): 5 Does the Patient Walk: Yes Gait (FIM): 6 Gait distance (FIM): 3=150 ft Walk 10 feet (QC): 6 Walk 10ft-Uneven Surface(QC): 6 Walk 50ft with 2 Turns (QC): 6 Walk 150 ft (QC): 6 Gait Assistive Device: Cane Small Base Quad Does the Pt use WC or Scooter?: No Stairs (FIM): 5 # of Steps: 8 1 Step (curb) (QC): 5 4 Steps (QC): 6 12 Steps (QC): 88 Picking up an Object (QC): 4 PT Plan Problem List Problem List: Activity Tolerance, Functional Strength, Safety, Balance, Gait Treatment/Plan Treatment Plan: Continue Plan of Care Treatment Plan: Bed Mobility, Education, Functional Activity Klaudia, Functional Strength, Group Therapy, Gait, Safety, Therapeutic Exercise, Transfers Treatment Duration: Aug 17, 2016 Visits Per Week: 10-15 Minutes/Day (M-F): 60-90 Safety Risks/Education Patient Education: Gait Training, Transfer Techniques, Correct Positioning, Safety Issues Teaching Recipient: Patient Teaching Methods: Discussion Response to Teaching: Verbalize Understanding Time/GCodes Time In: 930 Time Out: 1030 Total Billed Treatment Time: 60 Total Billed Treatment visit, EX x2 (30m), GT (15m) & FA (15m) MARY RICHARD BIOPROCESS ENGINEER Aug 02, 2016 11:31
--- NOTE | 2016-08-02 13:55 | Occupational Ther Daily Note ---
OT Current Status-Daily Note Subjective Pt alert, sitting in recliner. Pt agreed to therapy. No c/o pain. Mental Status/Objective Patient Orientation: Person, Place, Time, Situation Functional [place] Measure 0=Not Assessed/NA 4=Minimal Assistance 1=Total Assistance 5=Supervision or Setup 2=Maximal Assistance 6=Modified [place] 3=Moderate Assistance 7=Complete [place] ADL-Treatment Functional [place] Measure 0=Not Assessed/NA 4=Minimal Assistance 1=Total Assistance 5=Supervision or Setup 2=Maximal Assistance 6=Modified [place] 3=Moderate Assistance 7=Complete IndependenceIRFPAI Quality Coding Scale 6 Independent with activity with or without an assistive device 5 Patient requires set up or clean up by helper. Patient completes activity by themselves 4 Supervision or touching assist (CGA). [place] provide cues , steadying assist 3 The helper provides less than half the effort to complete the activity 2 The helper provides more than half the effort to complete the activity 1 Dependent. The helper does all the effort to complete an activity 7 Patient refused to complete or attempt activity 9 The patient did not perform the activity before the current illness or injury 88 Not attempted due to Medical conditions or safety concerns Other Treatment Pt and CHILDERS discussed energy conservation strategies in the home environment. Pt verbalized understanding of strategies and problem solved situations and how to use the strategies effectively. Sit to stand with SBA then ambulated with cane to sit EOB with SBA. Pt given AE magazine for energy conservation tools. Pt then completed AROM with R hand/wrist/elbow without resistance. Applied non- skid material to end of sling to decrease slippage of arm. After therapy, pt sitting in recliner with call light/phone in reach. All needs met in room. Education OT Patient Education: Energy conservation Teaching Recipient: Patient Teaching Methods: Demonstration, Handout Response to Teaching: Verbalize Understanding OT Short Term Goals Short Term Goals Time Frame: Aug 10, 2016 Lower Body Dressing(FIM): 5 Toileting(FIM): 5 Transfers (B,C,W/C) (FIM): 5 Toilet/Commode Transfer(FIM): 5 Additional Short Term Goals: 1-Demonstrate ADL Tasks, 2-Verbalize Understanding , 3-ImproveStrength/Klaudia 1=Demonstrate adherence to instructed precautions during ADL tasks. 2=Patient will verbalize/demonstrate understanding of assistive devices/ modifications for ADL. 3=Patient will improve strength/tolerance for activity to enable patient to perform ADL's. OT Steno Typist Goals Halfway Goals Time Frame: Aug 17, 2016 Eating (FIM): 7 Eating (QC): 6 Groomin Oral Hygiene (QC): 6 Bathing(FIM): 6 Shower/Bathe Self (QC): 6 Upper Body Dressing(FIM): 6 Upper Body Dressing (QC): 6 Lower Body Dressing(FIM): 6 Lower Body Dressing (QC): 6 On/Off Footwear (QC): 6 Toileting(FIM): 6 Toileting Hygiene (QC): 6 Toilet/Commode Transfer(FIM): 6 Toilet/Commode Transfer (QC): 6 Shower Transfer(FIM): 6 Additional Goals: 1-Demonstrate ADL Tasks, 2-Verbalize Understanding, 3- ImproveStrength/Klaudia 1=Demonstrate adherence to instructed precautions during ADL tasks. 2=Patient will verbalize/demonstrate understanding of assistive devices/ modifications for ADL. 3=Patient will improve strength/tolerance for activity to enable patient to perform ADL's. OT Education/Plan Problem List/Assessment Pt would benefit from skilled OT to increase her independence in basic self care to allow her to return home safely to live with her and son. Discharge Recommendations Plan/Recommendations: Continue POC Treatment Plan/Plan of Care Patient would benefit from OT for education, treatment and training to promote independence in ADL's, mobility, safety and/or upper extremity function for ADL' s. Plan of Care: ADL Retraining, Functional Mobility, Group Exercise/Act as Ind ( education, exercise, activity tolerance, funct activities, socialization), UE Funct Exercise/Act, UE Neuromus Re-Ed/Coord Treatment Duration: Aug 17, 2016 Visits Per Week: 10-12 Minutes/Day (M-F): 75-90 Minutes/Day (Sat/Porter): PRN Agreement: Yes Rehab Potential: Good Time/GCodes Start Time: 13:00 Stop Time: 13:45 Total Time Billed (hr/min): 45 Billed Treatment Time 1 visit-FA 2 (35 min) EX 1 (10 min) EMANI KUMARI Aug 02, 2016 13:55
--- NOTE | 2016-08-02 15:23 | Physical Therapy Daily Note ---
PT Daily Note-Current Subjective Pt sitting in recliner upon arrival. Pt agreed to PT for tx. Mental Status Patient Orientation: Person, Place, Time, Situation Attachments: Oxygen (2L) Transfers Functional [place] Measure 0=Not Assessed/NA 4=Minimal Assistance 1=Total Assistance 5=Supervision or Setup 2=Maximal Assistance 6=Modified [place] 3=Moderate Assistance 7=Complete IndependenceIRFPAI Quality Coding Scale 6 Independent with activity with or without an assistive device 5 Patient requires set up or clean up by helper. Patient completes activity by themselves 4 Supervision or touching assist (CGA). [place] provide cues , steadying assist 3 The helper provides less than half the effort to complete the activity 2 The helper provides more than half the effort to complete the activity 1 Dependent. The helper does all the effort to complete an activity 7 Patient refused to complete or attempt activity 9 The patient did not perform the activity before the current illness or injury 88 Not attempted due to Medical conditions or safety concerns Scootin Sit to/from Stand: 5 Sit to Stand (QC): 5 Weight Bearing Weight Bearing Restriction: Full Weight Bearing Location Restriction: LE Bilateral Gait Training Does the Patient Walk?: Yes Distance (FIM): 3=150 ft Distance: 175' Walk 10 feet (QC): 5 Walk 50 ft with 2 Turns(QC): 5 Walk 150 ft (QC): 5 Gait Level of Assist: 5 Gait Persons Needed: 1 Gait Assistive Device: FWW Pt ambulated with slow but steady shukri, no LOB. Pt fatigues easy and needs rest break. Wheelchair Training Does the Pt Use a Wheelchair?: No Exercises Seated Therapy Exercises: Ankle pumps, Long arc quads, Hip flexion, Kicking activity Seated Reps: 15 NuStep Minutes: 10 NuStep Workload: 2 Treatments Pt transferred from recliner to standing using SPC at [facility]. Pt ambulates in hallway using SPC at [facility]. Pt uses NuStep for 10m at Workload 2 and completes Seated Ex to increase strength and activity tolerance of LE which will improve balance with upright activities. Assessment Current Status: Good Progress Pt is improving with mobility and transfers although continues to fatigue easy due back fractures and other medical dx. PT Short Term Goals Short Term Goals Time Frame: Aug 07, 2016 Transfers (B,C,W/C) (FIM): 5 Gait (FIM): 5 PT Mcc Goals Mcc Goals PT Mcc Goals Time Frame: Aug 17, 2016 Transfers (B,C,W/C) (FIM): 7 Sit to Lying (QC): 6 Lying-Sitting on Side/Bed(QC): 6 Sit to Stand (QC): 6 Rollin Roll Left to Right (QC): 6 Chair/Ejv-kh-Qsleb Xfer(QC): 6 Car Transfer (QC): 5 Does the Patient Walk: Yes Gait (FIM): 6 Gait distance (FIM): 3=150 ft Walk 10 feet (QC): 6 Walk 10ft-Uneven Surface(QC): 6 Walk 50ft with 2 Turns (QC): 6 Walk 150 ft (QC): 6 Gait Assistive Device: Cane Small Base Quad Does the Pt use WC or Scooter?: No Stairs (FIM): 5 # of Steps: 8 1 Step (curb) (QC): 5 4 Steps (QC): 6 12 Steps (QC): 88 Picking up an Object (QC): 4 PT Plan Problem List Problem List: Activity Tolerance, Functional Strength, Safety, Balance, Gait, Transfer Treatment/Plan Treatment Plan: Continue Plan of Care Treatment Plan: Bed Mobility, Education, Functional Activity Klaudia, Functional Strength, Group Therapy, Gait, Safety, Therapeutic Exercise, Transfers Treatment Duration: Aug 17, 2016 Visits Per Week: 10-15 Minutes/Day (M-F): 60-90 Safety Risks/Education Patient Education: Gait Training, Transfer Techniques, Correct Positioning, Safety Issues Teaching Recipient: Patient Teaching Methods: Discussion Response to Teaching: Verbalize Understanding Time/GCodes Time In: 1345 Time Out: 1430 Total Billed Treatment Time: 45 Total Billed Treatment visit, GT (15m) & EX x2 (30m) MARY RICHARD CARGO BRACER Aug 02, 2016 15:23
[2016-08-02 18:11] VITALS: BP 135/85
--- NOTE | 2016-08-02 18:12 | Individualized Plan of Care ---
Individualized Plan of Care Rehab Nursing IPOC Order Admission Date Jul 30, 2016 at 14:30 Current Orders Orders Chest 1 View, Ap/Pa Only (08/03/16 06:00) Mat Protocol-Rt Rfs (08/02/16 07:04) Potassium Chloride (Tablet) (K Dur Table (08/02/16 08:15) Basic Metabolic Panel (08/03/16 06:00) Cbc No Diff (08/03/16 06:00) Loratadine Tablet (Claritin Tablet) (08/02/16 09:00) Patient Visit (08/02/16 ) Exercise Therap, Ea 15 Min (08/02/16 ) Gait Training, Ea 15 Min (08/02/16 ) Functional Activities, Ea 15 (08/02/16 ) Patient Visit (08/02/16 ) Gait Training, Ea 15 Min (08/02/16 ) Exercise Therap, Ea 15 Min (08/02/16 ) PT IPOC Problem List: Activity Tolerance, Functional Strength, Safety, Balance, Gait, Transfer Treatment Plan: Continue Plan of Care Bed Mobility, Education, Functional Activity Klaudia, Functional Strength, Group Therapy, Gait, Safety, Therapeutic Exercise, Transfers Treatment Duration: Aug 17, 2016 Visits Per Week: 10-15 Minutes/Day (M-F): 60-90 Minutes/Day (Sat/Porter): prn OT IPOC Problems: Decreased Activ Tolerance, Decreased UE Strength, Dependent Transfers , Impaired Funct Balance, Impaired Self-Care Skills, Restricted Funct UE ROM OT Problems Pt would benefit from skilled OT to increase her independence in basic self care to allow her to return home safely to live with her and son. Plan of Care: ADL Retraining, Functional Mobility, Group Exercise/Act as Ind ( education, exercise, activity tolerance, funct activities, socialization), UE Funct Exercise/Act, UE Neuromus Re-Ed/Coord Treatment Duration: Aug 17, 2016 Visits Per Week: 10-12 Minutes/Day (M-F): 75-90 Minutes/Day (Sat/Porter): PRN ST IPOC Speech Therapy Treatment Plan: Discontinue ST Physician IPOC Medical Issues being managed closely and that require the 24 hour availability of a physician: Pneumonia,Acute on chronic resp failure Sarcoidosis 02 dependent , Fall with rt clavicle frx managed with sling Medical Issues: Bowel/Bladder Function, DVT Prophylaxis, Falls Precautions, Fluid/Electrolyte/Nutrition Balance, Infection Protection, Pain Management, Weight Bearing Precautions, Other (List) (as per above) Brief Synthesis of Preadmission Screen, Post-Admission Evaluation, and Therapy Evaluations: Patient with general debil secondary to pneumonia with HX of COPD and Sarcoidosis on prednisone chronically who had a recent fall with ressssssssssulting rt clavicle frx and rib frx managed medically with a sling .Had been Independent prior to this a nd living at home with Spouse and son. Medical Prognosis: good Anticipated Length of Stay: 08/06/16 Rehab Goals Modified Independent to supervvvision for adls and mobility skills May require some assistance from family until sling d/cd by ortho Dr Soliz Anticipated discharge destinat: Home with family and [facility] PHYLLIS KULKARNI MD Aug 02, 2016 18:12
[2016-08-02] MEDS: BACLOFEN 10 MG (LIORESAL) TAB PO SCH (20:07)
[2016-08-02] MEDS: LACTOBACILLUS Acidoph/Bulgar (LACTINEX/FLORANEX) TAB PO SCH (20:07)
[2016-08-02] MEDS: FLUoxetine HCL 20 MG (PROzac) CAP PO SCH (20:07)
[2016-08-02] MEDS: SIMvastatin 40 MG (ZOCOR) TAB PO SCH (20:07)
[2016-08-02] MEDS: diphenhydrAMINE 25 MG TAB (BENADRYL) PO SCH (20:08)
[2016-08-03 05:21] LABS: MEAN PLATELET VOLUME 10.5 FL (7.4-10.4); RED BLOOD COUNT 4.45 10^6/uL (4.35-5.85); RED CELL DISTRIBUTION WIDTH 15.6 % (10.0-14.5)
[2016-08-03] MEDS: SUCRALFATE 1 GM (CARAFATE) TAB PO SCH ×4 (05:26→20:09)
[2016-08-03] MEDS: PANTOPRAZOLE 40 MG (PROTONIX) TAB PO SCH ×2 (05:27→20:08)
[2016-08-03] MEDS: MULTIVIT W/MINERALS TAB (THERAGRAN M) PO SCH (05:27)
[2016-08-03] MEDS: predniSONE 10 MG TAB PO SCH (05:27)
[2016-08-03] MEDS: LEVOTHYROXINE 112 MCG (LEVOTHROID) TAB PO SCH (05:27)
[2016-08-03] MEDS: LEVOTHYROXINE 25 MCG (LEVOTHROID) TAB PO SCH (05:27)
[2016-08-03 05:39] LABS: ANION GAP 13 MMOL/L (5-14); BLOOD UREA NITROGEN 10 MG/DL (7-18); BUN/CREATININE RATIO 15 (0-20); CALCIUM 9.4 MG/DL (8.5-10.1); CARBON DIOXIDE 30 MMOL/L (21-32); CHLORIDE 102 MMOL/L (98-107); CREATININE SERUM 0.65 MG/DL (0.60-1.30); GFR ESTIMATED > 60; GLUCOSE 94 MG/DL (70-105); HEMOLYSIS 16 (0-29); ICTERUS 0.4 (0-1.9); LIPEMIA -2 (0-49); POTASSIUM 3.6 MMOL/L (3.6-5.0); SODIUM 145 MMOL/L (135-145)
[2016-08-03 05:51] VITALS: BP 147/89
[2016-08-03] MEDS: RT-ALBUTEROL/IPRATROPIUM 3 ML (DUONEB) VIAL INH SCH ×4 (06:37→18:57)
[2016-08-03] MEDS: HYDROcodone/APAP 5 MG/325 MG (LORTAB) TAB PO PRN ×2 (07:10→12:05)
[2016-08-03] MEDS: ALPRAZolam 0.5 MG (XANAX) TAB PO SCH ×2 (07:10→20:08)
[2016-08-03] MEDS: guaiFENesin (MUCINEX) 600 MG TAB PO SCH ×2 (07:10→20:07)
[2016-08-03] MEDS: DOCUSATE SODIUM 100 MG (COLACE) CAP PO SCH ×2 (07:10→20:08)
[2016-08-03] MEDS: LORATADINE (CLARITIN) 10 MG TAB PO SCH (07:11)
--- NOTE | 2016-08-03 07:46 | Progress Note (SOAP) ---
Subjective Time Seen by Provider: 07:42 Subjective/Events-last exam general debility. Sinusitis. Sarcoidosis. Pneumothorax. Patient worried about getting pneumonia Objective Exam Vital Signs Date Time Temp Pulse Resp B/P (MAP) Pulse Ox O2 Delivery O2 Flow Rate FiO2 08/03/16 06:39 100 Nasal Cannula 2.00 08/03/16 05:51 98.5 100 20 147/89 96 Nasal Cannula 3.00 08/02/16 21:00 Nasal Cannula 2.00 08/02/16 19:21 94 Nasal Cannula 2.00 08/02/16 18:11 98.0 87 18 135/85 95 Nasal Cannula 2.00 08/02/16 14:52 94 Nasal Cannula 4.00 08/02/16 11:01 98 Nasal Cannula 4.00 08/02/16 09:00 Nasal Cannula 2.00 I & O 08/03/16 07:00 Intake Total 1800 ml Balance 1800 ml Capillary Refill : Less Than 3 Seconds General Appearance: No Apparent Distress, WD/WN HEENT: Normal ENT Inspection Neck: Full Range of Motion, Normal Inspection Respiratory: Chest Non Tender, No Accessory Muscle Use, No Respiratory Distress Cardiovascular: Regular Rate, Rhythm, Normal Peripheral Pulses Results Lab Laboratory Tests 08/03/16 05:09: White Blood Count 11.0, Red Blood Count 4.45, Hemoglobin 13.0, Hematocrit 42, Mean Corpuscular Volume 94, Mean Corpuscular Hemoglobin 29, Mean Corpuscular Hemoglobin Concent 31L, Red Cell Distribution Width 15.6H, Platelet Count 393, Mean Platelet Volume 10.5H, Sodium Level 145, Potassium Level 3.6, Chloride Level 102, Carbon Dioxide Level 30, Anion Gap 13, Blood Urea Nitrogen 10, Creatinine 0.65, Estimat Glomerular Filtration Rate > 60, BUN/Creatinine Ratio 15, Glucose Level 94, Calcium Level 9.4 Assessment/Plan Assessment/Plan Assess & Plan/Chief Complaint debility. COPD. Morbid obesity. Hypothyroid. Right clavicle fracture. Right shoulder dislocation. Pleurocentesis. Pneumothorax. . 08/01/16. Debility. COPD. Morbid obesity. Hypothyroid. Right clavicle fracture. Right shoulder dislocation. Thoracocentesis. Patient tired since did not sleep well last night. . 08/02/16. Debility. COPD. Sarcoidosis. Morbid obesity. Right shoulder dislocation. Patient had a good night sleep. Patient feeling better. . 08/03/16. Debility. COPD. Sarcoidosis. Morbid Obesity. Patient has sinusitis.. Chest x-ray report not read yet Clinical Quality Measures DVT/VTE Risk/Contraindication: Risk Factor Score Per Nursin RFS Level Per Nursing on Admit: 4+=Very High FRED GRAVES DO Aug 03, 2016 07:46
--- NOTE | 2016-08-03 08:09 | Diagnostic Imaging Report ---
INDICATION: Pneumonia, shortness of air. TECHNIQUE: Single-view chest 4:05 AM. CORRELATION STUDY: 07/31/2016. FINDINGS: Heart size and mediastinum stable. Vasculature does remain prominent but improved. Scattered areas of infiltrate particularly in the right mid/ lower lung field along with small effusions stable. IMPRESSION: Bilateral pulmonary infiltrates right greater than left persisting along with small moderate right and small left pleural effusions. Dictated by: Dictated on workstation # [id number]
--- NOTE | 2016-08-03 08:29 | PM & R (SOAP) Progress Note ---
Subjective Time Seen by Provider: 07:45 Subjective/Events-last exam Patient was seen in her room this AM Progressing well with therapies.Patient SBA for transfers and gait with 02 tether line,Patient asks about 02 for home had been using it only at night with compressor and doesnt have portable unit Review of Systems Pulmonary: Dyspnea Objective Exam Last Set of Vital Signs Vital Signs Date Time Temp Pulse Resp B/P (MAP) Pulse Ox O2 Delivery O2 Flow Rate FiO2 08/03/16 06:39 100 Nasal Cannula 2.00 08/03/16 05:51 98.5 100 20 147/89 Capillary Refill : Less Than 3 Seconds I&O Bad tableGeneral: Alert, Oriented X3, Cooperative, No Acute Distress HEENT: Atraumatic, PERRLA, EOMI, Mucous Memb Moist/[place], Other (02 by N/C inplace) Neck: Supple, No JVD Lungs: Other (few crackles at bases) Heart: Regular Rate Abdomen: Normal Bowel Sounds, Soft, No Tenderness, Other (obese) Extremities: No Edema Neuro: Other (RT arm in sling .generalized weakness) Results Lab Laboratory Tests 08/01/16 05:27: White Blood Count 12.7H, Red Blood Count 4.19L, Hemoglobin 12.4, Hematocrit 39, Mean Corpuscular Volume 94, Mean Corpuscular Hemoglobin 30, Mean Corpuscular Hemoglobin Concent 32, Red Cell Distribution Width 15.4H, Platelet Count 462H, Mean Platelet Volume 10.8H, Neutrophils (%) (Auto) 67, Lymphocytes (%) (Auto) 12 , Monocytes (%) (Auto) 17H, Eosinophils (%) (Auto) 4, Basophils (%) (Auto) 0, Neutrophils # (Auto) 8.5H, Lymphocytes # (Auto) 1.5, Monocytes # (Auto) 2.2H, Eosinophils # (Auto) 0.5H, Basophils # (Auto) 0.0, Sodium Level 144, Potassium Level 3.3L, Chloride Level 102, Carbon Dioxide Level 32, Anion Gap 10, Blood Urea Nitrogen 13, Creatinine 0.64, Estimat Glomerular Filtration Rate > 60, BUN/ Creatinine Ratio 20, Glucose Level 92, Calcium Level 9.1, Total Bilirubin 0.4, Aspartate Amino Transf (AST/SGOT) 18, Alanine Aminotransferase (ALT/SGPT) 19, Alkaline Phosphatase 118, Total Protein 5.6L, Albumin 3.3 08/03/16 05:09: White Blood Count 11.0, Red Blood Count 4.45, Hemoglobin 13.0, Hematocrit 42, Mean Corpuscular Volume 94, Mean Corpuscular Hemoglobin 29, Mean Corpuscular Hemoglobin Concent 31L, Red Cell Distribution Width 15.6H, Platelet Count 393, Mean Platelet Volume 10.5H, Sodium Level 145, Potassium Level 3.6, Chloride Level 102, Carbon Dioxide Level 30, Anion Gap 13, Blood Urea Nitrogen 10, Creatinine 0.65, Estimat Glomerular Filtration Rate > 60, BUN/Creatinine Ratio 15, Glucose Level 94, Calcium Level 9.4 Assessment/Plan Assessment General debil secondary to acute on chronic resp insufficiency Pneumonia treated Copd 02 dependent Sarcoidosis on chronic steroid usage Obesity Plan Continue PT/OT Check labs and CXR-done repeat labs for am SCDS for dvy prophylaxis Team Conference held 08-01-16-See report for full functional update and POC and ELOS Appreciate DR quintero note and orders Order for Resp Therapy to document any need for continuous Discharge tentatively set for Saturday08/06/16 to home with family in [place] F/U with PCP and Pulm in [facility] See orders PHYLLIS KULKARNI MD Aug 03, 2016 08:29
[2016-08-03] MEDS ORDERED: SIMV40TA4 PO (09:43)
[2016-08-03] MEDS ORDERED: ALPR0.5T7 PO (09:43)
[2016-08-03] MEDS ORDERED: HYDR-3812 PO (09:43)
[2016-08-03] MEDS ORDERED: DOCU100C37 PO (09:43)
[2016-08-03] MEDS ORDERED: AZITHROMYCIN 250 MG TAB (ZITHROMAX) PO NR (10:30)
--- NOTE | 2016-08-03 10:39 | Physical Therapy Daily Note ---
PT Daily Note-Current Subjective Pt. states she is a little concerned b/c she is having some breathing issues that are keeping her from walking and exercising as she would like to. Pain Numeric Pain Scale: 0-No Pain Appearance audible crackling with breathing, O2 on at 2L , sats at rest 95%, after short bouts of gait pt. was SOB, with HR elevated to 110bpm, sats 89% briefly then quickly recovers Mental Status Patient Orientation: Normal For Age Attachments: Oxygen (2L) Transfers Functional [place] Measure 0=Not Assessed/NA 4=Minimal Assistance 1=Total Assistance 5=Supervision or Setup 2=Maximal Assistance 6=Modified [place] 3=Moderate Assistance 7=Complete IndependenceIRFPAI Quality Coding Scale 6 Independent with activity with or without an assistive device 5 Patient requires set up or clean up by helper. Patient completes activity by themselves 4 Supervision or touching assist (CGA). [place] provide cues , steadying assist 3 The helper provides less than half the effort to complete the activity 2 The helper provides more than half the effort to complete the activity 1 Dependent. The helper does all the effort to complete an activity 7 Patient refused to complete or attempt activity 9 The patient did not perform the activity before the current illness or injury 88 Not attempted due to Medical conditions or safety concerns Transfers (B, C, W/C) (FIM): 6 Scootin Rollin Supine to/from Sit: 6 Sit to/from Stand: 6 Bed to/from Chair: 6 Gait Training Does the Patient Walk?: Yes Gait (FIM): 2 Distance (FIM): 8=334-62 ft (75ftx5) Gait Level of Assist: 5 Gait Persons Needed: 1 Gait Assistive Device: Cane Single Point short bouts of gait are all that is tolerated as pts. HR elevates and some SOB Stair Training Stair Training: Handrails/: 2 handrails Stairs (FIM): 5 #of Steps: 4 Stairs: Pattern: Reciprocal Level of Assist: 6 household dist Exercises Seated Therapy Exercises: Ankle pumps, Sit to stand, Long arc quads, Shoulder Abd, Hip abd/add Seated Reps: 15 unable to lay down for exercise secondary to increased SOB, Nustep also crowds torso/diagphragm, seated LEs are only ex tolerated Assessment Current Status: Fair Progress all function limited by SOB, pt knows self well and is very insightful RE: her limits and status. PT Short Term Goals Short Term Goals Time Frame: Aug 07, 2016 Transfers (B,C,W/C) (FIM): 5 Gait (FIM): 5 PT [facility] Goals [facility] Goals PT Board Runner Goals Time Frame: Aug 17, 2016 Transfers (B,C,W/C) (FIM): 7 Sit to Lying (QC): 6 Lying-Sitting on Side/Bed(QC): 6 Sit to Stand (QC): 6 Rollin Roll Left to Right (QC): 6 Chair/Cmr-kf-Msboy Xfer(QC): 6 Car Transfer (QC): 5 Does the Patient Walk: Yes Gait (FIM): 6 Gait distance (FIM): 3=150 ft Walk 10 feet (QC): 6 Walk 10ft-Uneven Surface(QC): 6 Walk 50ft with 2 Turns (QC): 6 Walk 150 ft (QC): 6 Gait Assistive Device: Cane Small Base Quad Does the Pt use WC or Scooter?: No Stairs (FIM): 5 # of Steps: 8 1 Step (curb) (QC): 5 4 Steps (QC): 6 12 Steps (QC): 88 Picking up an Object (QC): 4 PT Plan Treatment/Plan Treatment Plan: Continue Plan of Care Treatment Plan: Bed Mobility, Education, Functional Activity Klaudia, Functional Strength, Group Therapy, Gait, Safety, Therapeutic Exercise, Transfers Treatment Duration: Aug 17, 2016 Visits Per Week: 10-15 Minutes/Day (M-F): 60-90 Minutes/Day (Sat/Porter): prn Safety Risks/Education Patient Education: Gait Training, Transfer Techniques, Steps, Correct Positioning, Disease Process, Safety Issues Teaching Recipient: Patient Teaching Methods: Demonstration, Discussion Response to Teaching: Verbalize Understanding, Return Demonstration, Reinforcement Needed discussed and educated RE: management of SOB as well as use of extended O2 tubing and safety with gait and function Time/GCodes Time In: 930 Time Out: 1030 Total Billed Treatment Time: 60 Total Billed Treatment 1,EX15,GT30,FA15 G Codes Necessary: TONY Mccallum TELETYPEWRITER OPERATOR Aug 03, 2016 10:39
--- NOTE | 2016-08-03 12:00 | Occupational Ther Daily Note ---
OT Current Status-Daily Note Subjective Pt seen in room, up in recliner, agreeable to OT. No pain mentioned. Pt did not want to bathe today. Appearance Alert, cooperative Mental Status/Objective Functional [place] Measure 0=Not Assessed/NA 4=Minimal Assistance 1=Total Assistance 5=Supervision or Setup 2=Maximal Assistance 6=Modified [place] 3=Moderate Assistance 7=Complete [place] ADL-Treatment Functional [place] Measure 0=Not Assessed/NA 4=Minimal Assistance 1=Total Assistance 5=Supervision or Setup 2=Maximal Assistance 6=Modified [place] 3=Moderate Assistance 7=Complete IndependenceIRFPAI Quality Coding Scale 6 Independent with activity with or without an assistive device 5 Patient requires set up or clean up by helper. Patient completes activity by themselves 4 Supervision or touching assist (CGA). [place] provide cues , steadying assist 3 The helper provides less than half the effort to complete the activity 2 The helper provides more than half the effort to complete the activity 1 Dependent. The helper does all the effort to complete an activity 7 Patient refused to complete or attempt activity 9 The patient did not perform the activity before the current illness or injury 88 Not attempted due to Medical conditions or safety concerns Grooming (FIM): 6 (Brushed teeth at sink, seated. Washed hands. brushed hair. Pt declined makeup) Discussed ADL equipment needs for home. She has a tall toilet but it is still not tall enough to get off of it easily. Recommend a 3.5 inch stool riser that is attached to toilet. Also discussed shower mat for bottom of shower, grab bars , hand held shower. Other Treatment After ADLs, pt walked without assistance with SPC to gym, with OT managing portable tank. In gym, pt did bilat scapular AROM but not shoulder flex or abd. Pt able to actively do internal rotation but can't reach neutral (same movement she does in sling). Worked on AROM elbow and she was able to fully flex R elbow against gravity and fully extend it. Also did hand strengthening with red theraputty, to help with pulling pants up. Pt did some strengthening with O2 off , supervised by RT and walked back to her room with SPC and no oxygen. When she got to her room, O2 sat was 79%. O2 reapplied by RT and sats quickly came up. Pt left up in recliner, O2 in place, all needs met. Education OT Patient Education: Exercise program, Progress toward Goal/Update tx plan Teaching Recipient: Patient Teaching Methods: Demonstration, Discussion Response to Teaching: Verbalize Understanding, Return Demonstration, Reinforcement Needed OT Short Term Goals Short Term Goals Time Frame: Aug 10, 2016 Lower Body Dressing(FIM): 5 Toileting(FIM): 5 Transfers (B,C,W/C) (FIM): 5 Toilet/Commode Transfer(FIM): 5 Additional Short Term Goals: 1-Demonstrate ADL Tasks, 2-Verbalize Understanding , 3-ImproveStrength/Klaudia 1=Demonstrate adherence to instructed precautions during ADL tasks. 2=Patient will verbalize/demonstrate understanding of assistive devices/ modifications for ADL. 3=Patient will improve strength/tolerance for activity to enable patient to perform ADL's. OT Fpc Goals Fpc Goals Time Frame: Aug 17, 2016 Eating (FIM): 7 Eating (QC): 6 Groomin Oral Hygiene (QC): 6 Bathing(FIM): 6 Shower/Bathe Self (QC): 6 Upper Body Dressing(FIM): 6 Upper Body Dressing (QC): 6 Lower Body Dressing(FIM): 6 Lower Body Dressing (QC): 6 On/Off Footwear (QC): 6 Toileting(FIM): 6 Toileting Hygiene (QC): 6 Toilet/Commode Transfer(FIM): 6 Toilet/Commode Transfer (QC): 6 Shower Transfer(FIM): 6 Additional Goals: 1-Demonstrate ADL Tasks, 2-Verbalize Understanding, 3- ImproveStrength/Klaudia 1=Demonstrate adherence to instructed precautions during ADL tasks. 2=Patient will verbalize/demonstrate understanding of assistive devices/ modifications for ADL. 3=Patient will improve strength/tolerance for activity to enable patient to perform ADL's. OT Education/Plan Problem List/Assessment Pt would benefit from skilled OT to increase her independence in basic self care to allow her to return home safely to live with her and son. Discharge Recommendations Plan/Recommendations: Continue POC Treatment Plan/Plan of Care Patient would benefit from OT for education, treatment and training to promote independence in ADL's, mobility, safety and/or upper extremity function for ADL' s. Plan of Care: ADL Retraining, Functional Mobility, Group Exercise/Act as Ind ( education, exercise, activity tolerance, funct activities, socialization), UE Funct Exercise/Act, UE Neuromus Re-Ed/Coord Treatment Duration: Aug 17, 2016 Visits Per Week: 10-12 Minutes/Day (M-F): 75-90 Minutes/Day (Sat/Porter): PRN Agreement: Yes Rehab Potential: Good Time/GCodes Start Time: 10:30 Stop Time: 11:30 Total Time Billed (hr/min): 60 Billed Treatment Time visit, 30 min ADL, 30 min exercise PRANAY GAVIRIA OT Aug 03, 2016 12:00
--- NOTE | 2016-08-03 12:07 | Physical Therapy Daily Note ---
PT Daily Note-Current Subjective Pt. states she just completed Rx with RT for assessment of need for O2 for home. States she had made the mistake of having O2 at home previously and gave it up."I wont do that again" Pt. requests written illustrated HEP. This was dispensed and pt demonstrated indep and good technique Mental Status Patient Orientation: Normal For Age Attachments: Oxygen Transfers Functional [place] Measure 0=Not Assessed/NA 4=Minimal Assistance 1=Total Assistance 5=Supervision or Setup 2=Maximal Assistance 6=Modified [place] 3=Moderate Assistance 7=Complete IndependenceIRFPAI Quality Coding Scale 6 Independent with activity with or without an assistive device 5 Patient requires set up or clean up by helper. Patient completes activity by themselves 4 Supervision or touching assist (CGA). [place] provide cues , steadying assist 3 The helper provides less than half the effort to complete the activity 2 The helper provides more than half the effort to complete the activity 1 Dependent. The helper does all the effort to complete an activity 7 Patient refused to complete or attempt activity 9 The patient did not perform the activity before the current illness or injury 88 Not attempted due to Medical conditions or safety concerns sit to stand all Mod I Exercises Seated Therapy Exercises: Ankle pumps, Sit to stand, Chair press-ups, Hip flexion, Hip abd/add Seated Reps: 12 Treatments reviewed and performed HEP of above exercises to provide seated strengthening ex program for pt as she becomes more SOB in supine and stance. Also discussed and demonstr safe proper use of O2 with extended tubing Assessment Current Status: Good Progress SOB with exertion continues PT Short Term Goals Short Term Goals Time Frame: Aug 07, 2016 Transfers (B,C,W/C) (FIM): 5 Gait (FIM): 5 PT Crosscutter Rolled Glass Goals Fdc Goals PT Fdc Goals Time Frame: Aug 17, 2016 Transfers (B,C,W/C) (FIM): 7 Sit to Lying (QC): 6 Lying-Sitting on Side/Bed(QC): 6 Sit to Stand (QC): 6 Rollin Roll Left to Right (QC): 6 Chair/Hml-uf-Khtmx Xfer(QC): 6 Car Transfer (QC): 5 Does the Patient Walk: Yes Gait (FIM): 6 Gait distance (FIM): 3=150 ft Walk 10 feet (QC): 6 Walk 10ft-Uneven Surface(QC): 6 Walk 50ft with 2 Turns (QC): 6 Walk 150 ft (QC): 6 Gait Assistive Device: Cane Small Base Quad Does the Pt use WC or Scooter?: No Stairs (FIM): 5 # of Steps: 8 1 Step (curb) (QC): 5 4 Steps (QC): 6 12 Steps (QC): 88 Picking up an Object (QC): 4 PT Plan Treatment/Plan Treatment Plan: Continue Plan of Care Treatment Plan: Bed Mobility, Education, Functional Activity Klaudia, Functional Strength, Group Therapy, Gait, Safety, Therapeutic Exercise, Transfers Treatment Duration: Aug 17, 2016 Visits Per Week: 10-15 Minutes/Day (M-F): 60-90 Minutes/Day (Sat/Porter): prn Safety Risks/Education Patient Education: Transfer Techniques, Issued Written HEP, Correct Positioning , Disease Process, Safety Issues Teaching Recipient: Patient Teaching Methods: Demonstration, Discussion Response to Teaching: Verbalize Understanding, Return Demonstration, Reinforcement Needed O2 use with extended tubing and HEP all discussed with pt. demonstrating good understanding and technique Time/GCodes Time In: 1130 Time Out: 1205 Total Billed Treatment Time: 35 Total Billed Treatment 1,EX35m G Codes Necessary: TONY Mccallum LIFE INSURANCE AGENT Aug 03, 2016 12:07
--- NOTE | 2016-08-03 14:26 | Therapy Group Daily Note ---
Therapy Daily Group Note Patient Education Topic Other List Below (importance of memory and strategies for memory) Exercises LE Seated Exercise Other/Notes Pt. attended group session. Pt. is very social, introduced self and shared funny family story. Pt. participated in memory activity of matching images as well as seated LE exercises. Pt. did well and enjoyed this activity as well as sharing her experiences with memory issues and how she managed . Pt. to room after group with SBA ans assist for O2. White at hand, needs met Start Time: 13:00 Stop Time: 14:10 Total Billed Treatment Time: 70 Total Billed Treatment 1,GRP TONY AHUMADA ROLL MECHANIC Aug 03, 2016 14:26
[2016-08-03 17:57] VITALS: BP 123/88
[2016-08-03] MEDS: SIMvastatin 40 MG (ZOCOR) TAB PO SCH (20:08)
[2016-08-03] MEDS: FLUoxetine HCL 20 MG (PROzac) CAP PO SCH (20:08)
[2016-08-03] MEDS: BACLOFEN 10 MG (LIORESAL) TAB PO SCH (20:08)
[2016-08-03] MEDS: LACTOBACILLUS Acidoph/Bulgar (LACTINEX/FLORANEX) TAB PO SCH (20:08)
[2016-08-03] MEDS: diphenhydrAMINE 25 MG TAB (BENADRYL) PO SCH (20:09)
[2016-08-04 05:18] VITALS: BP 152/85
[2016-08-04] MEDS: SUCRALFATE 1 GM (CARAFATE) TAB PO SCH ×4 (05:59→20:04)
[2016-08-04] MEDS: RT-ALBUTEROL/IPRATROPIUM 3 ML (DUONEB) VIAL INH SCH ×4 (06:42→19:31)
[2016-08-04] MEDS: LEVOTHYROXINE 25 MCG (LEVOTHROID) TAB PO SCH (06:48)
[2016-08-04] MEDS: LEVOTHYROXINE 112 MCG (LEVOTHROID) TAB PO SCH (06:48)
[2016-08-04] MEDS: PANTOPRAZOLE 40 MG (PROTONIX) TAB PO SCH ×2 (06:48→21:37)
[2016-08-04] MEDS: MULTIVIT W/MINERALS TAB (THERAGRAN M) PO SCH (06:48)
[2016-08-04] MEDS: predniSONE 10 MG TAB PO SCH (06:48)
[2016-08-04] MEDS: guaiFENesin (MUCINEX) 600 MG TAB PO SCH ×2 (08:35→21:38)
[2016-08-04] MEDS: DOCUSATE SODIUM 100 MG (COLACE) CAP PO SCH ×2 (08:35→21:38)
[2016-08-04] MEDS: AZITHROMYCIN 250 MG TAB (ZITHROMAX) PO SCH (08:35)
[2016-08-04] MEDS: ALPRAZolam 0.5 MG (XANAX) TAB PO SCH ×2 (08:35→21:37)
[2016-08-04] MEDS: LORATADINE (CLARITIN) 10 MG TAB PO SCH (08:37)
[2016-08-04] MEDS: HYDROcodone/APAP 5 MG/325 MG (LORTAB) TAB PO PRN (08:39)
--- NOTE | 2016-08-04 09:50 | Occupational Ther Daily Note ---
OT Current Status-Daily Note Subjective t seen in room, up in recliner, agreeable to OT. No pain mentioned. Appearance Alert, cooperative Mental Status/Objective Functional [place] Measure 0=Not Assessed/NA 4=Minimal Assistance 1=Total Assistance 5=Supervision or Setup 2=Maximal Assistance 6=Modified [place] 3=Moderate Assistance 7=Complete [place] ADL-Treatment O2 at 2L/min throughout. Pt managed oxygen tubing with L hand, along with SPC with tripod. Pt reported she is much more confident about going home. Pt left up in recliner, all needs met, Functional [place] Measure 0=Not Assessed/NA 4=Minimal Assistance 1=Total Assistance 5=Supervision or Setup 2=Maximal Assistance 6=Modified [place] 3=Moderate Assistance 7=Complete IndependenceIRFPAI Quality Coding Scale 6 Independent with activity with or without an assistive device 5 Patient requires set up or clean up by helper. Patient completes activity by themselves 4 Supervision or touching assist (CGA). [place] provide cues , steadying assist 3 The helper provides less than half the effort to complete the activity 2 The helper provides more than half the effort to complete the activity 1 Dependent. The helper does all the effort to complete an activity 7 Patient refused to complete or attempt activity 9 The patient did not perform the activity before the current illness or injury 88 Not attempted due to Medical conditions or safety concerns Grooming (FIM): 6 (Mod I, seated at sink. Brushed teeth. Washed face and hands during shower.) Bathing (FIM): 6 (Pt turned water on and off and rerieved towels from bar. Washed and dried all parts. Shower bench, grab bar, hand held shower. Pt able to use R hand to help with bathing but followed activity restrictions at the shoulder. ) Upper Body (FIM): 6 (Pt retrieved clean clothes from closet and carried them to bathroom. Doffed and donned dress, following R shoulder activity restrictions ) Lower Body Dressing (FIM): 6 (Doffed and donned panties and shoes. Retrieved clean clothes from closet and carried them to the bathroom. Able to pull panties up herself, including over R hip. Very steady standing) Toileting (FIM): 6 (Managed clothing and hygiene. BSC over toilet so she has arm rests to help with sit to stand.) Toilet/Commode Transfer (FIM): 6 (BSC over toilet) Shower Transfer(FIM): 6 (Getting on and out of shower, sitting on shower bench. Used grab bar to pull herself up but she did not need help.) Education OT Patient Education: Progress toward Goal/Update tx plan, Safety issues Teaching Recipient: Patient Teaching Methods: Discussion Response to Teaching: Verbalize Understanding OT Short Term Goals Short Term Goals Time Frame: Aug 10, 2016 Lower Body Dressing(FIM): 5 Toileting(FIM): 5 Transfers (B,C,W/C) (FIM): 5 Toilet/Commode Transfer(FIM): 5 Additional Short Term Goals: 1-Demonstrate ADL Tasks, 2-Verbalize Understanding , 3-ImproveStrength/Klaudia 1=Demonstrate adherence to instructed precautions during ADL tasks. 2=Patient will verbalize/demonstrate understanding of assistive devices/ modifications for ADL. 3=Patient will improve strength/tolerance for activity to enable patient to perform ADL's. OT Blast Furnace Checker Goals Senior Living Goals Time Frame: Aug 17, 2016 Eating (FIM): 7 Eating (QC): 6 Groomin Oral Hygiene (QC): 6 Bathing(FIM): 6 Shower/Bathe Self (QC): 6 Upper Body Dressing(FIM): 6 Upper Body Dressing (QC): 6 Lower Body Dressing(FIM): 6 Lower Body Dressing (QC): 6 On/Off Footwear (QC): 6 Toileting(FIM): 6 Toileting Hygiene (QC): 6 Toilet/Commode Transfer(FIM): 6 Toilet/Commode Transfer (QC): 6 Shower Transfer(FIM): 6 Additional Goals: 1-Demonstrate ADL Tasks, 2-Verbalize Understanding, 3- ImproveStrength/Klaudia 1=Demonstrate adherence to instructed precautions during ADL tasks. 2=Patient will verbalize/demonstrate understanding of assistive devices/ modifications for ADL. 3=Patient will improve strength/tolerance for activity to enable patient to perform ADL's. OT Education/Plan Problem List/Assessment Pt would benefit from skilled OT to increase her independence in basic self care to allow her to return home safely to live with her and son. Discharge Recommendations Plan/Recommendations: Continue POC (anticipate DC Saturday) Treatment Plan/Plan of Care Patient would benefit from OT for education, treatment and training to promote independence in ADL's, mobility, safety and/or upper extremity function for ADL' s. Plan of Care: ADL Retraining, Functional Mobility, Group Exercise/Act as Ind ( education, exercise, activity tolerance, funct activities, socialization), UE Funct Exercise/Act, UE Neuromus Re-Ed/Coord Treatment Duration: Aug 17, 2016 Visits Per Week: 10-12 Minutes/Day (M-F): 75-90 Minutes/Day (Sat/Porter): PRN Agreement: Yes Rehab Potential: Good Time/GCodes Start Time: 08:50 Stop Time: 09:32 Total Time Billed (hr/min): 42 Billed Treatment Time visit, 42 minutes ADL PRANAY GAVIRIA OT Aug 04, 2016 09:50
--- NOTE | 2016-08-04 13:10 | Physical Therapy Daily Note ---
PT Daily Note-Current Subjective Feels so much better. Feels the ABX is helping Pain Numeric Pain Scale: 0-No Pain Mental Status Patient Orientation: Normal For Age Attachments: Oxygen (2L) Transfers Functional [place] Measure 0=Not Assessed/NA 4=Minimal Assistance 1=Total Assistance 5=Supervision or Setup 2=Maximal Assistance 6=Modified [place] 3=Moderate Assistance 7=Complete IndependenceIRFPAI Quality Coding Scale 6 Independent with activity with or without an assistive device 5 Patient requires set up or clean up by helper. Patient completes activity by themselves 4 Supervision or touching assist (CGA). [place] provide cues , steadying assist 3 The helper provides less than half the effort to complete the activity 2 The helper provides more than half the effort to complete the activity 1 Dependent. The helper does all the effort to complete an activity 7 Patient refused to complete or attempt activity 9 The patient did not perform the activity before the current illness or injury 88 Not attempted due to Medical conditions or safety concerns Transfers (B, C, W/C) (FIM): 5 Scootin Rollin Supine to/from Sit: 6 Sit to/from Stand: 6 Gait Training Does the Patient Walk?: Yes Gait (FIM): 5 Distance (FIM): 2=749-02 ft ([id number]) Gait Level of Assist: 5 Gait Persons Needed: 1 Gait Assistive Device: Cane Single Point sist for O2 only, household exc Exercises Seated Therapy Exercises: Ankle pumps, Long arc quads, Hip flexion Seated Reps: 12 Treatments walking with rest breaks between, O2 sats >90% with acivity Assessment Current Status: Good Progress tolerated rx much better today, no breath crackles, further dist, no distress PT Short Term Goals Short Term Goals Time Frame: Aug 07, 2016 Transfers (B,C,W/C) (FIM): 5 Gait (FIM): 5 PT Ibm Websphere Portal Developer Goals Intermediate Goals PT Intermediate Goals Time Frame: Aug 17, 2016 Transfers (B,C,W/C) (FIM): 7 Sit to Lying (QC): 6 Lying-Sitting on Side/Bed(QC): 6 Sit to Stand (QC): 6 Rollin Roll Left to Right (QC): 6 Chair/Tgm-tq-Nhnuw Xfer(QC): 6 Car Transfer (QC): 5 Does the Patient Walk: Yes Gait (FIM): 6 Gait distance (FIM): 3=150 ft Walk 10 feet (QC): 6 Walk 10ft-Uneven Surface(QC): 6 Walk 50ft with 2 Turns (QC): 6 Walk 150 ft (QC): 6 Gait Assistive Device: Cane Small Base Quad Does the Pt use WC or Scooter?: No Stairs (FIM): 5 # of Steps: 8 1 Step (curb) (QC): 5 4 Steps (QC): 6 12 Steps (QC): 88 Picking up an Object (QC): 4 PT Plan Treatment/Plan Treatment Plan: Continue Plan of Care Treatment Plan: Bed Mobility, Education, Functional Activity Klaudia, Functional Strength, Group Therapy, Gait, Safety, Therapeutic Exercise, Transfers Treatment Duration: Aug 17, 2016 Visits Per Week: 10-15 Minutes/Day (M-F): 60-90 Minutes/Day (Sat/Porter): prn Safety Risks/Education Patient Education: Gait Training, Transfer Techniques Teaching Recipient: Patient Teaching Methods: Demonstration, Discussion Response to Teaching: Verbalize Understanding, Return Demonstration, Reinforcement Needed Time/GCodes Time In: 1040 Time Out: 1105 Total Billed Treatment Time: 25 Total Billed Treatment 1,GT25m G Codes Necessary: TONY Mccallum WASTEWATER ANALYST LAB ANALYST Aug 04, 2016 13:10
[2016-08-04 17:29] VITALS: BP 125/73
[2016-08-04] MEDS: LACTOBACILLUS Acidoph/Bulgar (LACTINEX/FLORANEX) TAB PO SCH (21:37)
[2016-08-04] MEDS: SIMvastatin 40 MG (ZOCOR) TAB PO SCH (21:37)
[2016-08-04] MEDS: BACLOFEN 10 MG (LIORESAL) TAB PO SCH (21:37)
[2016-08-04] MEDS: FLUoxetine HCL 20 MG (PROzac) CAP PO SCH (21:37)
[2016-08-04] MEDS: diphenhydrAMINE 25 MG TAB (BENADRYL) PO SCH (21:38)
[2016-08-05] MEDS: HYDROcodone/APAP 5 MG/325 MG (LORTAB) TAB PO PRN (04:57)
[2016-08-05] MEDS: LEVOTHYROXINE 112 MCG (LEVOTHROID) TAB PO SCH (05:00)
[2016-08-05] MEDS: LEVOTHYROXINE 25 MCG (LEVOTHROID) TAB PO SCH (05:00)
[2016-08-05 05:05] VITALS: BP 154/83
[2016-08-05] MEDS: SUCRALFATE 1 GM (CARAFATE) TAB PO SCH ×4 (05:49→20:08)
[2016-08-05] MEDS: PANTOPRAZOLE 40 MG (PROTONIX) TAB PO SCH ×2 (06:37→21:14)
[2016-08-05] MEDS: predniSONE 10 MG TAB PO SCH (06:37)
[2016-08-05] MEDS: MULTIVIT W/MINERALS TAB (THERAGRAN M) PO SCH (06:37)
[2016-08-05] MEDS: RT-ALBUTEROL/IPRATROPIUM 3 ML (DUONEB) VIAL INH SCH ×4 (07:14→19:47)
[2016-08-05] MEDS: AZITHROMYCIN 250 MG TAB (ZITHROMAX) PO SCH (09:38)
[2016-08-05] MEDS: guaiFENesin (MUCINEX) 600 MG TAB PO SCH ×2 (09:38→21:14)
[2016-08-05] MEDS: LORATADINE (CLARITIN) 10 MG TAB PO SCH (09:38)
[2016-08-05] MEDS: DOCUSATE SODIUM 100 MG (COLACE) CAP PO SCH ×2 (09:38→21:13)
[2016-08-05] MEDS: ALPRAZolam 0.5 MG (XANAX) TAB PO SCH ×2 (09:39→21:14)
[2016-08-05 18:09] VITALS: BP 123/82
[2016-08-05] MEDS: diphenhydrAMINE 25 MG TAB (BENADRYL) PO SCH (20:08)
[2016-08-05] MEDS: FLUoxetine HCL 20 MG (PROzac) CAP PO SCH (21:13)
[2016-08-05] MEDS: BACLOFEN 10 MG (LIORESAL) TAB PO SCH (21:13)
[2016-08-05] MEDS: SIMvastatin 40 MG (ZOCOR) TAB PO SCH (21:13)
[2016-08-05] MEDS: LACTOBACILLUS Acidoph/Bulgar (LACTINEX/FLORANEX) TAB PO SCH (21:14)
[2016-08-06] MEDS: SUCRALFATE 1 GM (CARAFATE) TAB PO SCH ×2 (05:13→10:41)
[2016-08-06 05:16] VITALS: BP 148/82
[2016-08-06] MEDS: LEVOTHYROXINE 25 MCG (LEVOTHROID) TAB PO SCH (05:48)
[2016-08-06] MEDS: LEVOTHYROXINE 112 MCG (LEVOTHROID) TAB PO SCH (05:48)
[2016-08-06] MEDS: RT-ALBUTEROL/IPRATROPIUM 3 ML (DUONEB) VIAL INH SCH ×2 (06:53→10:26)
[2016-08-06] MEDS: predniSONE 10 MG TAB PO SCH (07:15)
[2016-08-06] MEDS: PANTOPRAZOLE 40 MG (PROTONIX) TAB PO SCH (07:15)
[2016-08-06] MEDS: HYDROcodone/APAP 5 MG/325 MG (LORTAB) TAB PO PRN (07:15)
[2016-08-06] MEDS: MULTIVIT W/MINERALS TAB (THERAGRAN M) PO SCH (07:15)
[2016-08-06 08:01] VITALS: BP 122/79
--- NOTE | 2016-08-06 08:09 | Progress Note (SOAP) ---
Subjective Time Seen by Provider: 08:05 Subjective/Events-last exam patient feeling better today. Patient excited about being discharged today. No sore throat. No congestion in chest. General debility. Sarcoidosis. Patient to see field care manager at end of this month Objective Exam Vital Signs Date Time Temp Pulse Resp B/P (MAP) Pulse Ox O2 Delivery O2 Flow Rate FiO2 08/06/16 06:53 95 Nasal Cannula 2.00 08/06/16 05:16 98.0 92 20 148/82 94 Nasal Cannula 2.00 08/05/16 20:54 Nasal Cannula 2.00 08/05/16 19:48 94 Nasal Cannula 2.00 08/05/16 18:09 98.4 83 20 123/82 94 Nasal Cannula 2.00 08/05/16 15:05 95 Nasal Cannula 2.00 08/05/16 11:12 93 Nasal Cannula 2.00 08/05/16 09:00 Nasal Cannula 2.00 I & O 08/06/16 07:00 Intake Total 2700 ml Balance 2700 ml Capillary Refill : Less Than 3 Seconds General Appearance: No Apparent Distress, WD/WN, Obese HEENT: Normal ENT Inspection Neck: Normal Inspection Respiratory: Chest Non Tender, No Accessory Muscle Use, No Respiratory Distress , Decreased Breath Sounds Cardiovascular: Regular Rate, Rhythm Assessment/Plan Assessment/Plan Assess & Plan/Chief Complaint debility. COPD. Morbid obesity. Hypothyroid. Right clavicle fracture. Right shoulder dislocation. Pleurocentesis. Pneumothorax. . 08/01/16. Debility. COPD. Morbid obesity. Hypothyroid. Right clavicle fracture. Right shoulder dislocation. Thoracocentesis. Patient tired since did not sleep well last night. . 08/02/16. Debility. COPD. Sarcoidosis. Morbid obesity. Right shoulder dislocation. Patient had a good night sleep. Patient feeling better. . 08/03/16. Debility. COPD. Sarcoidosis. Morbid Obesity. Patient has sinusitis.. Chest x-ray report not read yet. . 08/06/16. Debility. COPD. Sarcoidosis. Sinusitis better. Patient breathing better and sore throat better.. Patient to go home today Clinical Quality Measures DVT/VTE Risk/Contraindication: Risk Factor Score Per Nursin RFS Level Per Nursing on Admit: 4+=Very High FRED GRAVES DO Aug 06, 2016 08:09
[2016-08-06] MEDS: LORATADINE (CLARITIN) 10 MG TAB PO SCH (08:14)
[2016-08-06] MEDS: DOCUSATE SODIUM 100 MG (COLACE) CAP PO SCH (08:14)
[2016-08-06] MEDS: guaiFENesin (MUCINEX) 600 MG TAB PO SCH (08:14)
[2016-08-06] MEDS: ALPRAZolam 0.5 MG (XANAX) TAB PO SCH (08:14)
[2016-08-06] MEDS: AZITHROMYCIN 250 MG TAB (ZITHROMAX) PO SCH (08:14)
--- NOTE | 2016-08-06 09:29 | Occupational Ther Daily Note ---
OT Current Status-Daily Note Subjective Pt seen in room, up in recliner, agreeable to OT. Pt feeling very confident about discharge to home today. No pain mentioned Appearance Alert, cooperative Mental Status/Objective Patient Orientation: Person, Place, Time, Situation Functional [place] Measure 0=Not Assessed/NA 4=Minimal Assistance 1=Total Assistance 5=Supervision or Setup 2=Maximal Assistance 6=Modified [place] 3=Moderate Assistance 7=Complete [place] ADL-Treatment Pt was very careful to manage oxygen tubing while walking in room and while walking with quad cane. A little extra time taken due to being careful Functional [place] Measure 0=Not Assessed/NA 4=Minimal Assistance 1=Total Assistance 5=Supervision or Setup 2=Maximal Assistance 6=Modified [place] 3=Moderate Assistance 7=Complete IndependenceIRFPAI Quality Coding Scale 6 Independent with activity with or without an assistive device 5 Patient requires set up or clean up by helper. Patient completes activity by themselves 4 Supervision or touching assist (CGA). [place] provide cues , steadying assist 3 The helper provides less than half the effort to complete the activity 2 The helper provides more than half the effort to complete the activity 1 Dependent. The helper does all the effort to complete an activity 7 Patient refused to complete or attempt activity 9 The patient did not perform the activity before the current illness or injury 88 Not attempted due to Medical conditions or safety concerns Eating (FIM): 7 (Pt able to cut food and open packages. Can feed herself without difficulty. No dentures) Eating (QC): 6 Grooming (FIM): 6 (Pt brusshed teeth and hair at sink, Washed fac and hands in shower. No makeup) Oral Hygiene (QC): 6 Bathing (FIM): 6 (Pt washed and dried all parts except back. Turned water on and off and retrieved towels. Shower bench, hand held shower, grab bars.) Shower/Bathe Self (QC): 6 Upper Body (FIM): 6 (Retrieved clean clothes from closet and put dirty ones away. Used quad cane for balance at closet. Doffed and donned clothing without assistance or LOB) Upper Body Dressing (QC): 6 Lower Body Dressing (FIM): 6 (Retrieved clean clothes from closet and put dirty ones away. Used quad cane for balance at closet. Doffed and donned clothing without assistance or LOB. Doffed/donned shoes without difficulty. Sat to take shoes off) Lower Body Dressing (QC): 6 On/Off Footwear (QC): 6 Toileting Hygiene (QC): 6 (Mod I, BSC over toilet. Grab bar. Managed clothing and hygiene. No LOB) Transfers (B, C, W/C) (FIM): 6 Toilet/Commode Transfer (FIM): 6 (Mod I, BSC over toilet. Grab bar. No LOB) Toilet Transfer (QC): 6 Shower Transfer(FIM): 6 (Shower bench, grab bars. ) Education OT Patient Education: Modified ADL techniques, Progress toward Goal/Update tx plan, Purpose of tx/functional activities, Safety issues Teaching Recipient: Patient Teaching Methods: Discussion Response to Teaching: Verbalize Understanding OT Short Term Goals Short Term Goals Time Frame: Aug 10, 2016 Lower Body Dressing(FIM): 5 Toileting(FIM): 5 Transfers (B,C,W/C) (FIM): 5 Toilet/Commode Transfer(FIM): 5 Additional Short Term Goals: 1-Demonstrate ADL Tasks, 2-Verbalize Understanding , 3-ImproveStrength/Klaudia 1=Demonstrate adherence to instructed precautions during ADL tasks. 2=Patient will verbalize/demonstrate understanding of assistive devices/ modifications for ADL. 3=Patient will improve strength/tolerance for activity to enable patient to perform ADL's. OT Group Home Goals Physical Therapist Clinic Director Goals Time Frame: Aug 17, 2016 Eating (FIM): 7 (goal met 08-06-16) Eating (QC): 6 (goal met 08-06-16) Groomin (goal met 08-06-16) Oral Hygiene (QC): 6 (goal met 08-06-16) Bathing(FIM): 6 (goal met 08-06-16) Shower/Bathe Self (QC): 6 (goal met 08-06-16) Upper Body Dressing(FIM): 6 (goal met 08-06-16) Upper Body Dressing (QC): 6 (goal met 08-06-16) Lower Body Dressing(FIM): 6 (goal met 08-06-16) Lower Body Dressing (QC): 6 (goal met 08-06-16) On/Off Footwear (QC): 6 (goal met 08-06-16) Toileting(FIM): 6 (goal met 08-06-16) Toileting Hygiene (QC): 6 (goal met 08-06-16) Toilet/Commode Transfer(FIM): 6 (goal met 08-06-16) Toilet/Commode Transfer (QC): 6 (goal met 08-06-16) Shower Transfer(FIM): 6 (goal met 08-06-16) Additional Goals: 1-Demonstrate ADL Tasks, 2-Verbalize Understanding, 3- ImproveStrength/Klaudia 1=Demonstrate adherence to instructed precautions during ADL tasks. 2=Patient will verbalize/demonstrate understanding of assistive devices/ modifications for ADL. 3=Patient will improve strength/tolerance for activity to enable patient to perform ADL's. OT Education/Plan Problem List/Assessment Pt would benefit from skilled OT to increase her independence in basic self care to allow her to return home safely to live with her and son. Discharge Recommendations Plan/Recommendations: Discharge/Goals Met (see tx plan for specifics) Treatment Plan/Plan of Care Patient would benefit from OT for education, treatment and training to promote independence in ADL's, mobility, safety and/or upper extremity function for ADL' s. Plan of Care: ADL Retraining, Functional Mobility, Group Exercise/Act as Ind ( education, exercise, activity tolerance, funct activities, socialization), UE Funct Exercise/Act, UE Neuromus Re-Ed/Coord Treatment Duration: Aug 17, 2016 Visits Per Week: 10-12 Minutes/Day (M-F): 75-90 Minutes/Day (Sat/Porter): PRN Agreement: Yes Rehab Potential: Good Time/GCodes Start Time: 08:30 Stop Time: 09:20 Total Time Billed (hr/min): 50 Billed Treatment Time visit, 50 minutes ADL PRANAY GAVIRIA OT Aug 06, 2016 09:29
--- NOTE | 2016-08-06 09:51 | Physical Therapy Daily Note ---
PT Daily Note-Current Subjective Patient in recliner pre tx, agrees to PT, no complaints of pain, patient is discharging from this facility today and needs FIM'ed Appearance Patient in recliner post tx with nurse call, phone, tray, all needs met. Mental Status Patient Orientation: Normal For Age Attachments: Oxygen 2L of O2 nasal canula. Transfers Functional [place] Measure 0=Not Assessed/NA 4=Minimal Assistance 1=Total Assistance 5=Supervision or Setup 2=Maximal Assistance 6=Modified [place] 3=Moderate Assistance 7=Complete IndependenceIRFPAI Quality Coding Scale 6 Independent with activity with or without an assistive device 5 Patient requires set up or clean up by helper. Patient completes activity by themselves 4 Supervision or touching assist (CGA). [place] provide cues , steadying assist 3 The helper provides less than half the effort to complete the activity 2 The helper provides more than half the effort to complete the activity 1 Dependent. The helper does all the effort to complete an activity 7 Patient refused to complete or attempt activity 9 The patient did not perform the activity before the current illness or injury 88 Not attempted due to Medical conditions or safety concerns Transfers (B, C, W/C) (FIM): 6 Scootin Rollin Roll Left to Right (QC): 6 Supine to/from Sit: 6 Sit to/from Stand: 6 Sit to Lying (QC): 6 Sit to Stand (QC): 6 Gait Training Gait (FIM): 6 Distance: 150'x2 Walk 10 feet (QC): 6 Walk 50 ft with 2 Turns(QC): 6 Walk 150 ft (QC): 6 Walking 10ft/uneven surface-QC: 4 (SBA) Gait Assistive Device: Cane Small Base Quad Patient can ambulate 150' with a quad cane (what she will be using at home) with mod I (including 50' with at least 2 turns of 90 degrees), but she needs SBA for uneven surfaces. Stair Training Stair Training: Handrails/: 1 handrail Stairs (FIM): 2 #of Steps: 8 1 Step (curb) (QC): 6 4 Steps (QC): 6 12 Steps (QC): 88 Stairs: Pattern: Step to Treatments bed mobility and transfers, ambulation Assessment Current Status: Fair Progress Patient has made good progress but gets fatigued and SOB quickly and needs to take frequent rest breaks. PT Short Term Goals Short Term Goals Time Frame: Aug 07, 2016 Transfers (B,C,W/C) (FIM): 5 Gait (FIM): 5 PT Biotech Production Specialist Goals Jail Goals PT Biotech Production Specialist Goals Time Frame: Aug 17, 2016 Transfers (B,C,W/C) (FIM): 7 Sit to Lying (QC): 6 Lying-Sitting on Side/Bed(QC): 6 Sit to Stand (QC): 6 Rollin Roll Left to Right (QC): 6 Chair/Qqd-zx-Fiaqm Xfer(QC): 6 Car Transfer (QC): 5 Does the Patient Walk: Yes Gait (FIM): 6 Gait distance (FIM): 3=150 ft Walk 10 feet (QC): 6 Walk 10ft-Uneven Surface(QC): 6 Walk 50ft with 2 Turns (QC): 6 Walk 150 ft (QC): 6 Gait Assistive Device: Cane Small Base Quad Does the Pt use WC or Scooter?: No Stairs (FIM): 5 # of Steps: 8 1 Step (curb) (QC): 5 4 Steps (QC): 6 12 Steps (QC): 88 Picking up an Object (QC): 4 PT Plan Problem List Problem List: Activity Tolerance, Functional Strength, Safety, Balance, Gait, Transfer Treatment/Plan Treatment Plan: Continue Plan of Care Treatment Plan: Bed Mobility, Education, Functional Activity Klaudia, Functional Strength, Group Therapy, Gait, Safety, Therapeutic Exercise, Transfers Treatment Duration: Aug 17, 2016 Visits Per Week: 10-15 Minutes/Day (M-F): 60-90 Minutes/Day (Sat/Porter): prn Safety Risks/Education Patient Education: Gait Training, Transfer Techniques, Steps, Correct Positioning, Safety Issues Teaching Recipient: Patient Teaching Methods: Demonstration, Discussion Response to Teaching: Reinforcement Needed Time/GCodes Time In: 930 Time Out: 950 Total Billed Treatment Time: 20 Total Billed Treatment 1 visit GT Elvia' JACQUELINE ALVARADO PT Aug 06, 2016 09:51
--- NOTE | 2016-08-06 09:57 | Therapy Team Discharge Summary ---
Therapy Discharge Summary Discharge Recommendations Date of Discharge Physical Therapy Patient came to rehab following pneumonia. Upon evaluation patient performed bed mobility and transfers with min/CGA, ambulated 125' with a quad cane with CGA, and could go up and down 1 step with a quad cane with CGA. Patient has been performing bed mobility and transfer training, balance and endurance training, functional strengthening, stair training, gait training, and education. She has made good progress and has met all of her care home goals except for ambulating on an uneven surface, car transfer, and picking up and object from the floor. Now, patient performs bed mobility and transfers with mod I, ambulates 150' with a quad cane with mod I (including 50' with at least 2 turns of 90 degrees) but has to have SBA when ambulating over an uneven surface, and can go up and down 8 steps using 1 handrail with mod I. Patient has not performed a car transfer yet and has trouble bending over to diamond picker and object from the floor. Patient is discharging from this facility today and will be discharged from PT at this time. PT Beveling And Edging Machine Operator Goals Beveling And Edging Machine Operator Goals PT Beveling And Edging Machine Operator Goals Time Frame: Aug 17, 2016 Transfers (B,C,W/C) (FIM): 7 Roll Left to Right (QC): 6 Sit to Lying (QC): 6 Lying-Sitting on Side/Bed(QC): 6 Sit to Stand (QC): 6 Chair/[id number] Xfer(QC): 6 Car Transfer (QC): 5 Does the Patient Walk: Yes Gait (FIM): 6 Gait distance (FIM): 3=150 ft Walk 10 feet (QC): 6 Walk 10ft-Uneven Surface(QC): 6 Walk 50ft with 2 Turns (QC): 6 Walk 150 ft (QC): 6 Gait Assistive Device: Cane Small Base Quad Does the Pt use WC or Scooter?: No Stairs (FIM): 5 # of Steps: 8 1 Step (curb) (QC): 5 4 Steps (QC): 6 12 Steps (QC): 88 Picking up an Object (QC): 4 OT Beveling And Edging Machine Operator Goals Shelter Goals Time Frame: Aug 17, 2016 Eating (FIM): 7 Eating (QC): 6 Oral Hygiene (QC): 6 Grooming(FIM): 6 Bathing(FIM): 6 Shower/Bathe Self (QC): 6 Upper Body Dressing(FIM): 6 Upper Body Dressing (QC): 6 Lower Body Dressing(FIM): 6 Lower Body Dressing (QC): 6 On/Off Footwear (QC): 6 Toileting(FIM): 6 Toileting Hygiene (QC): 6 Toilet/Commode Transfer(FIM): 6 Toilet/Commode Transfer (QC): 6 Shower Transfer(FIM): 6 Additional Goals: 1-Demonstrate ADL Tasks, 2-Verbalize Understanding, 3- ImproveStrength/Klaudia 1=Demonstrate adherence to instructed precautions during ADL tasks. 2=Patient will verbalize/demonstrate understanding of assistive devices/ modifications for ADL. 3=Patient will improve strength/tolerance for activity to enable patient to perform ADL's. JACQUELINE ALVARADO PT Aug 06, 2016 09:57
--- NOTE | 2016-08-06 10:51 | Therapy Team Discharge Summary ---
Therapy Discharge Summary Discharge Recommendations Date of Discharge August 06, 2016 Therapy D/C Recommendations: Occupational Therapy Home Care Occupational Therapy Pt was seen for skilled OT to increase her independence in basic self car to allow her to safely return home to live with family support. On admission she needed CGA for grooming, bathing; mod assist for toileting and lower body dressing,min assist shower transfer; mod I for feeding self. By discharge she was independent with feeding and modified indep with all other basic ADLs. She used BSC over toilet, quad cane, shower bench, grab bars, hand held shower. She has a BSC at home. See tx plan for goals met. Pt may benefit from skilled OT at home for short duration PT Equipment Validation Specialist Goals Equipment Validation Specialist Goals PT Equipment Validation Specialist Goals Time Frame: Aug 17, 2016 Transfers (B,C,W/C) (FIM): 7 Roll Left to Right (QC): 6 Sit to Lying (QC): 6 Lying-Sitting on Side/Bed(QC): 6 Sit to Stand (QC): 6 Chair/Qgh-to-Ymopf Xfer(QC): 6 Car Transfer (QC): 5 Does the Patient Walk: Yes Gait (FIM): 6 Gait distance (FIM): 3=150 ft Walk 10 feet (QC): 6 Walk 10ft-Uneven Surface(QC): 6 Walk 50ft with 2 Turns (QC): 6 Walk 150 ft (QC): 6 Gait Assistive Device: Cane Small Base Quad Does the Pt use WC or Scooter?: No Stairs (FIM): 5 # of Steps: 8 1 Step (curb) (QC): 5 4 Steps (QC): 6 12 Steps (QC): 88 Picking up an Object (QC): 4 OT Equipment Validation Specialist Goals Residential Goals Time Frame: Aug 17, 2016 Eating (FIM): 7 (goal met 08-06-16) Eating (QC): 6 (goal met 08-06-16) Oral Hygiene (QC): 6 (goal met 08-06-16) Grooming(FIM): 6 (goal met 08-06-16) Bathing(FIM): 6 (goal met 08-06-16) Shower/Bathe Self (QC): 6 (goal met 08-06-16) Upper Body Dressing(FIM): 6 (goal met 6-19-17) Upper Body Dressing (QC): 6 (goal met 08-06-16) Lower Body Dressing(FIM): 6 (goal met 08-06-16) Lower Body Dressing (QC): 6 (goal met 08-06-16) On/Off Footwear (QC): 6 (goal met 08-06-16) Toileting(FIM): 6 (goal met 08-06-16) Toileting Hygiene (QC): 6 (goal met 08-06-16) Toilet/Commode Transfer(FIM): 6 (goal met 08-06-16) Toilet/Commode Transfer (QC): 6 (goal met 08-06-16) Shower Transfer(FIM): 6 (goal met 08-06-16) Additional Goals: 1-Demonstrate ADL Tasks, 2-Verbalize Understanding, 3- ImproveStrength/Klaudia 1=Demonstrate adherence to instructed precautions during ADL tasks. 2=Patient will verbalize/demonstrate understanding of assistive devices/ modifications for ADL. 3=Patient will improve strength/tolerance for activity to enable patient to perform ADL's. PRANYA GAVIRIA OT Aug 06, 2016 10:51
[2016-08-06 13:35] VITALS: BP 122/79
--- NOTE | 2016-08-06 15:21 | PM & R (SOAP) Progress Note ---
Subjective Time Seen by Provider: 12:00 Subjective/Events-last exam Patient was seen in her room earlier today Appreciate Therapy notes Patient qualifies for home 02 continuous with DME thru [facility] to be provided Patient Modified Independent for transfers.Patient has progressed well Patients rt arm remains in sling Patient will have f/u with DR Martínez Ames re rt clavicle frx Objective Exam Last Set of Vital Signs Vital Signs Date Time Temp Pulse Resp B/P (MAP) Pulse Ox O2 Delivery O2 Flow Rate FiO2 08/06/16 13:35 98 18 122/79 94 Nasal Cannula 2.00 08/06/16 08:01 97.3 Capillary Refill : Less Than 3 Seconds I&O Intake and Output 08/06/16 00:00 Intake Total 2700 ml Balance 2700 ml Intake Oral 2700 ml # Voids 5 General: Alert, Oriented X3, Cooperative, No Acute Distress HEENT: Atraumatic, PERRLA, EOMI, Mucous Memb Moist/[place], Other (02 by N/C inplace) Neck: Supple, No JVD Lungs: Other (few crackles at bases) Heart: Regular Rate Abdomen: Normal Bowel Sounds, Soft, No Tenderness, Other (obese) Extremities: No Edema, Other (rt arm in sling) Neuro: Other (RT arm in sling .generalized weakness) Assessment/Plan Assessment General debil secondary to acute on chronic resp insufficiency Pneumonia treated 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 PHYLLIS KULKARNI MD Aug 06, 2016 15:21
== END 2016-08-06 13:35 | disposition home health service (06) | DRG 559 ==
LOC: ENPENDDIS 08-06 12:00
PROVIDERS: ADMIT Physical Medicine & Rehabilitation; ATTEND Physical Medicine & Rehabilitation
DX: S42.001D Fracture of unspecified part of right clavicle, subsequent encounter for fracture with routine healing (principal); S43.001D Unspecified subluxation of right shoulder joint, subsequent encounter; S22.31XD Fracture of one rib, right side, subsequent encounter for fracture with routine healing; S27.0XXD Traumatic pneumothorax, subsequent encounter; J18.9 Pneumonia, unspecified organism; D86.9 Sarcoidosis, unspecified; E66.01 Morbid (severe) obesity due to excess calories; Z68.41 Body mass index [BMI] 40.0-44.9, adult; J44.9 Chronic obstructive pulmonary disease, unspecified; J32.9 Chronic sinusitis, unspecified; E03.9 Hypothyroidism, unspecified; Z99.81 Dependence on supplemental oxygen; Z79.52 Long term (current) use of systemic steroids; W19.XXXD Unspecified fall, subsequent encounter
CPT/HCPCS: 36415; 71010; 71020; 80048; 80053; 85025; 85027; 94640; 94664; 94760; 94761